=== PATIENT | female | born 1975 | race Caucasian/White ===

== ENCOUNTER 2017-07-28 09:54 | Day surgery (SDC) | payer OTHER ==
[~2017-07-28 09:54] MED LIST: Buffered Lidocaine 0.9% SYRIN* 5 ML/SYR SYRINGE INTRADERM ONE
[2017-07-28] MEDS ORDERED: Bupivacaine 0.25% SDV* 30 ML ONE (10:20)
[2017-07-28] MEDS ORDERED: Clindamycin 900 MG IVPREMIX(* 900 MG/50 ML SDV IV ONE (10:39)
[2017-07-28] MEDS ORDERED: fentaNYL* 50 MCG/ML 2 ML VIAL (100 MCG VIAL) ONE ×2 (10:52→14:35)
[2017-07-28] MEDS ORDERED: Propofol* 10 MG/ML 20 ML BTL IV PUSH ONE (10:53)
[2017-07-28] MEDS ORDERED: KETAMINE HCL* 50 MG/ML 10 ML VIAL ONE (10:53)
[2017-07-28] MEDS ORDERED: Lidocaine 2% PF * 5 ML VIAL ONE (10:53)
[2017-07-28] MEDS ORDERED: Midazolam* 1 MG/ML 5 ML VIAL (5 MG) ONE (10:53)
[2017-07-28] MEDS ORDERED: Ketorolac INJ* 30 MG/ML 1 ML VIAL ONE (10:53)
[2017-07-28] MEDS ORDERED: diPHENhydraMINE IV* 50 MG/ML 1 ml VIAL (BENADRYL) ONE (10:53)
[2017-07-28] MEDS ORDERED: Dexamethasone IV* 4 MG/ML 1 ML (4 MG) ONE (10:53)
[2017-07-28] MEDS ORDERED: Famotidine IV* 10 MG/ML 2 ML (20 mg) ONE (10:59)
[2017-07-28] MEDS ORDERED: Bupivacaine 0.5% SDV PF* 30 ML VIAL ONE (11:00)
[2017-07-28] MEDS ORDERED: DiMENhydriNATE IV* 50 MG/ML VIAL IV PUSH PRN (13:07)
[2017-07-28] MEDS ORDERED: Ondansetron INJ* 2 MG/ML VIAL IV PRN (13:07)
[2017-07-28] MEDS ORDERED: Acetaminophen TAB* 325 MG PO PRN (13:07)
[2017-07-28] MEDS ORDERED: PROCHLORPERAZINE INJ 5 MG/ML 2 ML VIAL IV PRN (13:07)
[2017-07-28] MEDS ORDERED: HYDROmorphone INJ* 1 MG/ML CARPUJECT SYRINGE IV PRN (13:07)
[2017-07-28] MEDS ORDERED: fentaNYL* 50 MCG/ML 2 ML VIAL (100 MCG VIAL) IV PRN (13:07)
[2017-07-28] MEDS ORDERED: HYDROcodone/ACETAMIN 5-325 MG* 1 TAB PO PRN (13:07)
[2017-07-28] MEDS ORDERED: DiMENhydriNATE IV* 50 MG/ML VIAL ONE (15:31)
[2017-07-28 15:44] VITALS: BP 121/72
--- NOTE | 2017-07-29 05:48 | OP ---
DATE OF OPERATION: 07/28/17 - [facility] DATE OF : 71 SURGEON: Daniel Ledesma MD TRIALS MANAGER: ANDRÉS Sánchez. An behavioral assistant was needed for the entirety of the procedure to assist with the positioning of the arm and retraction. ANESTHESIOLOGIST: Dr. Canada. ANESTHESIA: Supraclavicular block plus general. PRE-OP DIAGNOSES: 1. Left carpal tunnel syndrome. 2. Left distal radius malunion. POST-OP DIAGNOSES: 1. Left carpal tunnel syndrome. 2. Left distal radius malunion. OPERATIVE PROCEDURE: 1. Left open carpal tunnel release. 2. Repair of left distal radius malunion with opening wedge osteotomy, and volar locking plate fixation, and contralateral distal radius bone graft together with crushed cancellous allograft. INDICATIONS: Kami has had the malunion for about 13 years. More recently, she has been getting a lot of dorsal wrist pain with use of the wrist. This is coupled with significant numbness and tingling in fingers and throbbing, aching pain in the volar hand and wrist. She had seen other providers in the past who had recommended nonunion repair of the distal radius. She has finally arrived a point in her life where she felt like it was time to proceed. She had about 35 to 40 degrees of dorsal tilt, negative radial inclination, and little bit of rotational deformity. I had talked to her about the surgery, about the postoperative course, the risks and benefits. She wanted to proceed. ESTIMATED BLOOD LOSS: 15 mL. COMPLICATIONS: None. FINDINGS: As expected. IMPLANTS: Synthes variable angle distal radius plate and 2.4 mm screws DESCRIPTION OF PROCEDURE: Kami was seen in the preoperative holding area. The correct site, side, and procedure were identified. We came back to the operating room where the supraclavicular block was performed by Dr. Canada. Both arms were then prepped and draped in the usual fashion and the time-out was performed. The arm was exsanguinated with the Esmarch and the tourniquet inflated to 250 mmHg. I began by making a 2 to 3 cm incision in the standard location for an open carpal tunnel release, dissection was carried down through the subcutaneous tissue and palmar fascia to expose the transverse carpal ligament. I then released the transverse carpal ligament just off the radial aspect of the hook of the hamate and completed the release distally. I then carried out the release proximally to the level of the proximal aspect of the incision in the wrist flexion crease. I released the subcutaneous tissue and fascia and retracted that volarly and ulnarly. I then placed a Jay retractor and under direct visualization at least the remainder of the transverse carpal ligament and distal antebrachial fascia with the tenotomy scissors. The decompression was checked and there was absolutely no compression on the nerve proximally or distally. I therefore irrigated out the wound and the skin was closed with 4-0 nylon suture. I then turned my attention to the distal radius malunion and performed an extended FCR approach by making a longitudinal incision over the distal FCR tendon and taking that obliquely distally towards the scaphoid tubercle. The subcutaneous tissue was dissected down through and then the FCR tendon sheath was released. The tendon was retracted ulnarly and the subsheath was released. A blunt dissection took me down to the pronator quadratus with soft tissue overlying. The pronator quadratus was freed up and some baby Hohmann's were placed distal to the malunion. This was all very thin and nothing but a thin layer of a scar tissue adherent to the volar aspect of the radius, which eventually did become thickened up as it approached the wrist joint into the extrinsic capsular ligament. I went ahead and released the pronator quadratus off its radial margin and then darci back transversely distally. This was reflected subperiosteally and retracted ulnarly. I then went ahead and released the brachioradialis radially and released the dorsal periosteum with the elevator at the anticipated site of the osteotomy. Once all of the soft tissue was dissected free and we were ready to perform the osteotomy, I went ahead and took my Synthes variable angle distal radius plate, the longest plate available and placed this on the anticipated position on the distal fragment. This was pinned in place and the alignment of the plate was checked fluoroscopically. I then placed one 24-mm cortical screw in the second most ulnar hole. I also drilled a second hole in the hole just radial to that hole. I then removed the cortical screw and I removed the radial styloid pin. The plate was removed leaving the other distal pin in place as a guide for my osteotomy as this pin was very parallel to the joint surface. With the plate removed and the pin left in place as a guide for the osteotomy, I then came right at the apex of the angular deformity, which was just proximal to the DRUJ and made my osteotomy with the sagittal saw. I then pronated the proximal fragment of the distal radius and release the dorsal periosteum. I placed the lamina vertical boring mill operator to loosen up the soft tissues. Once I had the soft tissues distracted and relaxed, I went ahead and replaced my plate over the pin and brought that back to my distal fragment. I replaced the cortical screw, and then checked fluoroscopy to ensure good plate placement on the distal fragment. I then placed the remainder of my distal row of screws using 2.4 mm normal angle locking screws in the ulnar 3 holes and a variable angle locking screw in the radial styloid output. The cortical screw was switched out for a locking screw. The pin was removed. I then placed a lamina vertical boring mill operator and spread apart the osteotomy and put the fragments in the desired position. I then used a lobster claw to bring the proximal plate down to the bone and secured it tightly to the bone. I then checked fluoroscopically. I tweaked it just a bit until I had everything to my satisfaction. I then placed my proximal screws with cortical screws proximally and in the very last screw hole in the proximal fragment, I made that a locking screw. I liked my fluoroscopic imaging, so I went ahead and went to the contralateral wrist to obtain my bone graft. I made a 1.5 cm incision just proximal to Kendra tubercle on the right distal radius. Dissection was carried down through the subcutaneous tissue. The subperiosteal flaps were raised to expose the dorsal distal radius. I used the osteotomes to create a cortical window. I then used the angled curette to obtain a large amount of cancellous bone graft. Once I had obtained adequate bone graft, I irrigated out this wound and closed the skin with 3-0 Monocryl suture and Steri-Strips. The site was infiltrated with 0.25% Marcaine and the wound was dressed with 4x4s and sterile Webril and an LEONARDO bandage. I went back to the left wrist and I took 5 mL of crushed cancellous bone chips and crushed them up and mixed them together with my autograft. I placed this in the osteotomy site and packed it down with a tamp. Once I had adequate bone graft in place, I went ahead and took some final fluoroscopic imaging. The wound was gently irrigated. The pronator quadratus was repaired with 3-0 Vicryl suture. I was not able to repair the most distal aspect as there was a small deficit where there was not a pronator quadratus on the distal aspect of the malunion. The rest of the pronator quadratus closed up nicely. I irrigated out the wound again. The subcutaneous tissue was reapproximated with 3-0 Vicryl. The skin was closed with 4- 0 nylon suture. The wound was dressed with Xeroform, 4x4s, sterile Webril and a cock-up wrist splint was applied with volar and dorsal slabs of plaster. The tourniquet was deflated. The hand pinked up immediately. Total tourniquet time was roughly 140 minutes. The patient was then woken up and taken to the recovery room in stable condition. [id number]/CPS #: [id number] RICCO
== END 2017-07-28 16:02 | disposition home or self-care (01) ==
LOC: OREAST 09:54
PROVIDERS: ATTEND Orthopaedic Surgery Hand Surgery
DX: G56.03 Carpal tunnel syndrome, bilateral upper limbs (principal); S52.502P Unspecified fracture of the lower end of left radius, subsequent encounter for closed fracture with malunion; X58.XXXD Exposure to other specified factors, subsequent encounter; G89.18 Other acute postprocedural pain; F17.210 Nicotine dependence, cigarettes, uncomplicated; Z88.1 Allergy status to other antibiotic agents; Z88.5 Allergy status to narcotic agent; Z88.0 Allergy status to penicillin; Z88.8 Allergy status to other drugs, medicaments and biological substances; F07.81 Postconcussional syndrome; G44.309 Post-traumatic headache, unspecified, not intractable
CPT/HCPCS: 81025; C1713; C1776; J1100; J1200; J1240; J1885; J2250; J2704; J3010

== ENCOUNTER 2019-03-10 01:52 | Emergency (ER) | payer MEDICAID ==
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
[2019-03-10 04:15] LABS: Hematocrit 33 % (33-41); Hemoglobin 10.9 g/dL (12.0-16.0); Mean Corpuscular HGB Conc 33 g/dL (31-36); Mean Corpuscular Hemoglobin 31 pg (27-31); Mean Corpuscular Volume 95 fL (80-97); Mean Platelet Volume 6.5 fL (7.4-10.4); Platelet Count 291 10^3/uL (150-450); Red Cell Distribution Width 14 % (10.5-15); White Blood Count 5.9 10^3/uL (3.5-10.8)
[2019-03-10 04:32] LABS: Albumin 3.9 g/dL (3.2-5.2); Albumin/Globulin Ratio 1.5 (1-3); BUN/Creatinine Ratio 9.8 (8-20); Calcium 8.1 mg/dL (8.6-10.3); EGFR African American 127.8 (>60); EGFR Non-African American 105.6 (>60); Globulin 2.6 g/dL (2-4); Potassium 3.8 mmol/L (3.5-5.0); Total Bilirubin 0.3 mg/dL (0.2-1.0); Total Protein 6.5 g/dL (6.4-8.9)
[2019-03-10 04:49] LABS: ABS Basophils 0.1 10^3/ul (0-0.2); ABS Eosinophils 0.7 10^3/ul (0-0.6); ABS Lymphocytes 3.5 10^3/ul (1.0-4.8); ABS Monocytes 0.2 10^3/ul (0-0.8); ABS Neutrophils 1.5 10^3/ul (1.5-7.7); ABS Nucleated RBC 0 10^3/ul; Eosinophil % 11.5 %; Lymphocyte % 58.5 %; Nucleated Red Blood Cells % 0.1
[2019-03-10 05:30] VITALS: BP 101/59
== END 2019-03-10 05:25 | disposition home or self-care (01) ==
LOC: ED 01:52
DX: J44.9 Chronic obstructive pulmonary disease, unspecified (principal); J40 Bronchitis, not specified as acute or chronic; R94.31 Abnormal electrocardiogram [ECG] [EKG]; K21.9 Gastro-esophageal reflux disease without esophagitis; Z79.899 Other long term (current) drug therapy; F17.210 Nicotine dependence, cigarettes, uncomplicated; Z88.3 Allergy status to other anti-infective agents; Z88.8 Allergy status to other drugs, medicaments and biological substances; Z88.0 Allergy status to penicillin
CPT/HCPCS: 36415; 71046; 80053; 83880; 84484; 85025; 93005; 99283

== ENCOUNTER → 2019-06-07 14:00 | Emergency (ER) | payer MEDICAID ==
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
[2019-06-07 14:44] LABS: ABS Monocytes 0.2 10^3/ul (0-0.8); ABS Neutrophils 3.7 10^3/ul (1.5-7.7); Eosinophil % 0.4 %; Hematocrit 37 % (35-47); Hemoglobin 12.6 g/dL (12.0-16.0); Lymphocyte % 33.5 %; Mean Corpuscular HGB Conc 34 g/dL (31-36); Mean Corpuscular Hemoglobin 32 pg (27-31); Mean Corpuscular Volume 94 fL (80-97); Mean Platelet Volume 6.2 fL (7.4-10.4); Platelet Count 296 10^3/uL (150-450); Red Blood Count 3.98 10^6 /uL (3.70-4.87); Red Cell Distribution Width 13 % (10-15); White Blood Count 5.9 10^3/uL (3.5-10.8)
[2019-06-07 15:00] LABS: Albumin 4.1 g/dL (3.2-5.2); Albumin/Globulin Ratio 1.4 (1-3); BUN/Creatinine Ratio 8.1 (8-20); Calcium 8.2 mg/dL (8.6-10.3); EGFR African American 125.4 (>60); EGFR Non-African American 103.6 (>60); Globulin 2.9 g/dL (2-4); Total Bilirubin 0.4 mg/dL (0.2-1.0)
[2019-06-07 16:28] VITALS: BP 121/66
== END | disposition home or self-care (01) ==
LOC: ED 14:00
DX: M54.30 Sciatica, unspecified side (principal); R07.89 Other chest pain; F10.129 Alcohol abuse with intoxication, unspecified; K21.9 Gastro-esophageal reflux disease without esophagitis; F17.210 Nicotine dependence, cigarettes, uncomplicated; Z88.1 Allergy status to other antibiotic agents; Z88.0 Allergy status to penicillin; Z88.8 Allergy status to other drugs, medicaments and biological substances; Z79.899 Other long term (current) drug therapy
CPT/HCPCS: 36415; 71046; 80053; 84484; 85025; 93005; 99282

== ENCOUNTER 2019-10-18 16:15 | Emergency (ER) | payer OTHER ==
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
[2019-10-18 18:02] LABS: Hematocrit 35 % (35-47); Hemoglobin 12.3 g/dL (12.0-16.0); Mean Corpuscular HGB Conc 35 g/dL (31-36); Mean Corpuscular Hemoglobin 33 pg (27-31); Mean Corpuscular Volume 96 fL (80-97); Mean Platelet Volume 5.9 fL (7.4-10.4); Platelet Count 508 10^3/uL (150-450); Red Blood Count 3.69 10^6 /uL (3.70-4.87); Red Cell Distribution Width 14 % (10-15); White Blood Count 3.3 10^3/uL (3.5-10.8)
[2019-10-18 18:12] LABS: ALT 24 U/L (7-52); Acetaminophen < 15 mcg/mL; Albumin 3.4 g/dL (3.2-5.2); Albumin/Globulin Ratio 1.1 (1-3); Alkaline Phosphatase 88 U/L (34-104); BUN/Creatinine Ratio 7.1 (8-20); Blood Urea Nitrogen 5 mg/dL (6-24); CO2 Carbon Dioxide 27 mmol/L (22-32); Calcium 8.3 mg/dL (8.6-10.3); Chloride 106 mmol/L (101-111); Creatine Kinase 91 U/L (10-223); EGFR Non-African American 90.1 (>60); Globulin 3.1 g/dL (2-4); Glucose 87 mg/dL (70-100); Salicylate < 2.50 mg/dL (<30); Sodium 141 mmol/L (135-145); Total Protein 6.5 g/dL (6.4-8.9)
[2019-10-18 18:16] LABS: Alcohol 459 mg/dL (<10)
[2019-10-18 18:17] LABS: HCG Pregnancy < 0.60 mIU/mL
[2019-10-18 18:24] LABS: Urine Appearance Clear; Urine Bilirubin Negative (Negative); Urine Blood Negative (Negative); Urine Color Straw; Urine Glucose Negative (Negative); Urine Ketones Negative (Negative); Urine Nitrite Negative (Negative); Urine Protein Negative (Negative); Urine Specific Gravity 1.002 (1.010-1.030); Urine Urobilinogen Negative (Negative)
[2019-10-18 18:25] LABS: TSH (Thyroid Stimulating Horm) 0.47 mcIU/mL (0.34-5.60)
[2019-10-18 18:43] LABS: Urine Benzodiazepine Screen None Detected (None Detect); Urine Opiates Screen None Detected (None Detect)
[2019-10-18 19:04] LABS: AST 40 U/L (13-39); Anion Gap 8 mmol/L (2-11)
[2019-10-18 19:18] LABS: ABS Basophils 0.1 10^3/ul (0-0.2); ABS Lymphocytes 2.3 10^3/ul (1.0-4.8); ABS Monocytes 0.1 10^3/ul (0-0.8); ABS Neutrophils 0.8 10^3/ul (1.5-7.7); Nucleated Red Blood Cells % 0.1
[2019-10-18] MEDS ORDERED: Thiamine IV 100 MG, Folic Acid IV* 1 MG, Multiple Vitamin IV ADULT* 10 ML in NS 0.9% 10... IV ONE (20:02)
[2019-10-18 21:18] VITALS: BP 88/57
--- OUTSIDE RECORDS SUMMARY | 2019-10-19 08:18 | XMS REPORT | Continuity of Care Document ---
:1975 External Reference #:[id number] Author Name Siddharth Gamez NP (transmitted by agent of provider Rose Monique) Address [address] [facility], [address] [place] [id number] Care Team Providers Name Role Phone Radha Smart MD - Internal Care Team Information [employer] [phone] Medicine Problems Active Problems Provider Date Postconcussion syndrome Ameena Correa MD Onset: 12/15/2015 Other seizures Ameena Correa MD Onset: 12/15/2015 Seizure Ameena Correa MD Onset: 06/22/2016 Carpal tunnel syndrome of left wrist Ameena Correa MD Onset: 02/11/2017 Right side sciatica Ameena Correa MD Onset: 06/06/2017 Posttraumatic headache Ameena Correa MD Onset: 06/06/2017 Disorder due to and following fracture of upper Daniel Ledesma MD Onset: 11/2016 limb Social History Type Date Description Comments Sex Unknown ETOH Use Denies alcohol use Tobacco Use Start: Unknown Heavy tobacco smoker (more 1 ppd x 25 yrs than 10 cigarettes/day) Recreational Drug Use Denies Drug Use Smoking Status Reviewed: 10/10/19 Heavy tobacco smoker (more 1 ppd x 25 yrs than 10 cigarettes/day) Exercise Type/Frequency Exercises regularly Allergies, Adverse Reactions, Alerts Active Allergies Reaction Severity Comments Date Amoxicillin 12/15/2015 Penicillins 12/15/2015 Morphine 12/15/2015 Darifenacin 12/15/2015 Nitroglycerin 12/15/2015 Eggs or Egg-derived Products 12/15/2015 Strawberries 12/31/2015 Chocolate 12/31/2015 Milk-related Compounds 12/31/2015 Erythromycin 12/31/2015 Oxycodone rash Moderate 08/18/2017 Gabapentin Seizures 08/18/2017 Ibuprofen 09/19/2019 Medications Active Medications SIG Qnty Indications Ordering Date Provider Jass ac 5-10ml every 6 200ml J20.9 Siddharth Gamez NP 10/10/2019 hours as needed 100-10mg/5ML cough. Solution Prednisone take 4 tab daily x 20tabs J20.9 Siddharth Gamez NP 10/10/2019 10mg 2 days then 3 tab Tablets daily x 2 days, then 2 tab daily for 2 day, and 1 tab for 2 day. Azithromycin 2 tabs by mouth 6tabs J01.90 Siddharth Gamez NP 10/10/2019 250mg every day x1 day, Tablets 1 tab by mouth every day x 4 days Butalbital/Acetamino 1-2 capsules every 30caps Siddharth Gamez NP 10/10/2019 phen/Caffeine 12 hours as needed for headache 50-325-40mg Capsules Baclofen take 1/2-1 tab 60tabs M54.12 Siddharth Gamez NP 10/08/2019 10mg Tablets every 8 hours as needed for muscle spasm Lidocaine apply to affected 30gm M51.16 Siddharth Gamez NP 09/25/2019 4% Cream areas 3 or 4 times daily Cane use while 1units M51.16 Siddharth Gamez NP 09/19/2019 Misc ambulating Pregabalin one by mouth twice 60caps M51.16 Siddharth Gamez NP 09/19/2019 75mg daily Capsules Diclofenac Sodium apply to affected 100gm M54.31 Grecia Martin, 2018 1% area for pain DO Gel twice daily as needed Nicotrol 2 every 2 hours as 168units F17.210 Siddharth Gamez NP 06/26/2019 10mg Inhaler needed Cetirizine HCL One tablet once 30tabs Siddharth Gamez NP 05/25/2019 10mg daily Tablets Benzonatate take one or two 30caps J20.9 Siddharth Gamez NP 11/13/2018 100mg capsules every 8 Capsules hours as needed for cough. Ventolin HFA 2 puffs by mouth 8units J20.9 Siddharth Gamez NP 10/13/2018 four times a day 108(90Base) mcg/Act as needed Aerosol Wrist Brace wear at night 1units G56.02 Ameena Correa MD 02/11/2017 Ultra-Lite Carpal Tunnel/One Size Misc Omeprazole Take 1 Capsule By 30caps Siddharth Gamez NP 12/31/2015 20mg Mouth Every Day Capsules DR History Medications Tylenol Extra 2 by mouth as 90tabs Siddharth Gamez NP 10/08/2019 - Strength needed 10/10/2019 500mg Tablets Tizanidine HCL 1-2 tabs three 60tabs M54.12 Siddharth Gamez NP 09/26/2019 - 2mg times daily as 10/08/2019 Tablets needed Tizanidine HCL 1 cap by mouth 30caps M54.12 Siddharth Gamez NP 09/23/2019 - 2mg every 8 hours as 09/26/2019 Capsules needed Lidocaine apply to painful 70.88gm M51.16 Siddharth Gamez NP 09/19/2019 - 5% areas three 09/25/2019 Ointment times a day as needed Metaxalone 1-2 tabs 3 times 60tabs M54.12 Siddharth Gamez NP 09/19/2019 - 400mg daily as needed. 09/23/2019 Tablets Pain Relieving apply one to the 12units M54.31 Grecia Martin, 06/26/2019 - Lidocaine Patch hip daily as DO 07/02/2019 4% needed for pain Patches Immunizations Description No Information Available Vital Signs Date Vital Result Comment 10/10/2019 12:05pm Height 67 inches 5'7" Weight 111.38 lb Heart Rate 91 /min BP Systolic 119 mmHg BP Diastolic 79 mmHg Body Temperature 99.4 F O2 % BldC Oximetry 97 % BMI (Body Mass Index) 17.4 kg/m2 09/19/2019 11:45am Height 67 inches 5'7" Weight 111.00 lb Heart Rate 103 /min BP Systolic 116 mmHg BP Diastolic 78 mmHg Body Temperature 98.8 F O2 % BldC Oximetry 96 % BMI (Body Mass Index) 17.4 kg/m2 Results Test Acquired Date Facility Test Result H/L Range Note Xray 09/19/2019 [facility] SP Cervical 4+VWS <pending> [address] [place] [address] [phone] SP Lumbarsacral 4+ VWS <pending> Laboratory test 07/12/2019 [facility] Magnesium 1.5 mg/dL Low 1.9-2.[address] [place] [address] [phone] Creatine Kinase(CK) 221 U/L Normal 10-223 Troponin-I (TnI) 0.00 ng/mL <0.04 1 HCG 0.88 mIU/mL 2 Alcohol < 10 mg/dL Normal <10 TSH (Thyroid Stim Horm) 2.47 mcIU/mL Normal 0.34-5.60 Comp Metabolic Panel 07/12/2019 [facility] Sodium 133 mmol/L Low 135-[address] [place] [address] [phone] Potassium 4.1 mmol/L Normal 3.5-5.0 Chloride 99 mmol/L Low 101-111 Co2 Carbon Dioxide 29 mmol/L Normal 22-32 Anion Gap 5 mmol/L Normal 2-11 Glucose 92 mg/dL Normal 70-100 Blood Urea Nitrogen 5 mg/dL Low 6-24 Creatinine 0.71 mg/dL Normal 0.51-0.95 BUN/Creatinine Ratio 7.0 Low 8-20 Calcium 9.4 mg/dL Normal 8.6-10.3 Total Protein 7.1 g/dL Normal 6.4-8.9 Albumin 4.3 g/dL Normal 3.2-5.2 Globulin 2.8 g/dL Normal 2-4 Albumin/Globulin Ratio 1.5 Normal 1-3 Total Bilirubin 0.70 mg/dL Normal 0.2-1.0 Alkaline Phosphatase 85 U/L Normal 34-104 Alt 37 U/L Normal 7-52 Ast 45 U/L High 13-39 Egfr Non- 88.6 >60 Egfr 107.2 >60 3 Laboratory test 07/12/2019 [facility] Ammonia 40 mcmol/L Normal 16-[address] [place] [address] [phone] B-Type Natriuretic Peptide BNP 38 pg/mL <=100 Urine Drug 07/12/2019 [facility] Urine None Detected None Detect SCR ED & [address] A[place] [address] Screen [phone] Urine Barbiturates Screen None Detected None Detect Urine Benzodiazepine Screen None Detected None Detect Urine Cannabinoids Screen None Detected None Detect Urine Cocaine Screen None Detected None Detect Urine Opiates Screen None Detected None Detect Urine Phencyclidine Screen None Detected None Detect 4 Laboratory test 07/12/2019 [facility] Lactic Acid 1.4 mmol/L Normal 0.5-2.[address] [place] [address] [phone] CBC Auto Diff 07/12/2019 [facility] White Blood 7.9 10^3/uL Normal 3.5-10.[address] [place] [address] [phone] Red Blood Count 3.86 10^6/uL Normal 3.70-4.87 Hemoglobin 12.5 g/dL Normal 12.0-16.0 Hematocrit 36 % Normal 35-47 Mean Corpuscular Volume 94 fL Normal 80-97 Mean Corpuscular Hemoglobin 32 pg High 27-31 Mean Corpuscular HGB Conc 34 g/dL Normal 31-36 Red Cell Distribution Width 14 % Normal 10-15 Platelet Count 222 10^3/uL Normal 150-450 Mean Platelet Volume 7.4 fL Normal 7.4-10.4 Abs Neutrophils 5.7 10^3/uL Normal 1.5-7.7 Abs Lymphocytes 2.0 10^3/uL Normal 1.0-4.8 Abs Monocytes 0.2 10^3/uL Normal 0-0.8 Abs Eosinophils 0.0 10^3/uL Normal 0-0.6 Abs Basophils 0.1 10^3/uL Normal 0-0.2 Abs Nucleated RBC 0.0 10^3/uL Granulocyte % 71.1 % Lymphocyte % 24.9 % Monocyte % 2.9 % Eosinophil % 0.4 % Basophil % 0.7 % Nucleated Red Blood Cells % 0.0 Urinalysis Profile 07/12/2019 [facility] Urine Color Yellow [address] [place] [address] [phone] Urine Appearance Cloudy Urine Specific [place] 1.006 Low 1.010-1.030 Urine pH 5.0 Normal 5-9 Urine Urobilinogen Negative Negative Urine Ketones Negative Negative Urine Protein Negative Negative Urine Leukocytes Negative Negative Urine Blood Negative Negative Urine Nitrite Negative Negative Urine Bilirubin Negative Negative Urine Glucose Negative Negative Laboratory 06/26/2019 [facility] TSH (Thyroid 1.95 Normal 0.34 -5.[address] Stim Horm) mcIU/[place] [address] [phone] Hemoglobin A1c (Glyco HGB) 5.1 % Normal 4.0-5.6 6 HIV 1&2 p24 06/26/2019 [facility] HIV 4th Negative Negative Screen [address] [place] [address] [phone] Hepatitis C 06/26/2019 [facility] HCV Index 0.02 s/c Antibody [address] [place] [address] [phone] Hepatitis C Antibody Negative Negative Basic Metabolic 06/26/2019 [facility] Sodium 135 mmol/L Normal 135-145 Panel [address] [place] [address] [phone] Potassium 3.7 mmol/L Normal 3.5-5.0 Chloride 99 mmol/L Low 101-111 Co2 Carbon Dioxide 26 mmol/L Normal 22-32 Anion Gap 10 mmol/L Normal 2-11 Glucose 84 mg/dL Normal 70-100 Blood Urea Nitrogen 7 mg/dL Normal 6-24 Creatinine 0.81 mg/dL Normal 0.51-0.95 BUN/Creatinine Ratio 8.6 Normal 8-20 Calcium 9.2 mg/dL Normal 8.6-10.3 Egfr Non- 76.1 >60 Egfr 92.1 >60 7 CBC Auto 06/26/2019 [facility] White Blood 4.1 10^3/uL Normal 3.5-10.[address] [place] [address] [phone] Red Blood Count 3.90 10^6/uL Normal 3.70-4.87 Hemoglobin 12.4 g/dL Normal 12.0-16.0 Hematocrit 36 % Normal 35-47 Mean Corpuscular Volume 93 fL Normal 80-97 Mean Corpuscular Hemoglobin 32 pg High 27-31 Mean Corpuscular HGB Conc 34 g/dL Normal 31-36 Red Cell Distribution Width 14 % Normal 10-15 Platelet Count 244 10^3/uL Normal 150-450 Mean Platelet Volume 7.0 fL Low 7.4-10.4 Abs Neutrophils 2.2 10^3/uL Normal 1.5-7.7 Abs Lymphocytes 1.5 10^3/uL Normal 1.0-4.8 Abs Monocytes 0.3 10^3/uL Normal 0-0.8 Abs Eosinophils 0.0 10^3/uL Normal 0-0.6 Abs Basophils 0.1 10^3/uL Normal 0-0.2 Abs Nucleated RBC 0.0 10^3/uL Granulocyte % 53.2 % Lymphocyte % 36.0 % Monocyte % 8.3 % Eosinophil % 1.2 % Basophil % 1.3 % Nucleated Red Blood Cells % 0.1 Lipid Profile 06/26/2019 [facility] Triglycerides 88 mg/dL 8 (Trig/Chol/HDL) [address] [place] [address] [phone] Cholesterol 198 mg/dL 9 HDL Cholesterol 74.5 mg/dL 10 LDL Cholesterol 106 mg/dL 11 CBC Auto 06/07/2019 [facility] White Blood 5.9 10^3/uL Normal 3.5-10.[address] [place] [address] [phone] Red Blood Count 3.98 10^6/uL Normal 3.70-4.87 Hemoglobin 12.6 g/dL Normal 12.0-16.0 Hematocrit 37 % Normal 35-47 Mean Corpuscular Volume 94 fL Normal 80-97 Mean Corpuscular Hemoglobin 32 pg High 27-31 Mean Corpuscular HGB Conc 34 g/dL Normal 31-36 Red Cell Distribution Width 13 % Normal 10-15 Platelet Count 296 10^3/uL Normal 150-450 Mean Platelet Volume 6.2 fL Low 7.4-10.4 Abs Neutrophils 3.7 10^3/uL Normal 1.5-7.7 Abs Lymphocytes 2.0 10^3/uL Normal 1.0-4.8 Abs Monocytes 0.2 10^3/uL Normal 0-0.8 Abs Eosinophils 0.0 10^3/uL Normal 0-0.6 Abs Basophils 0.0 10^3/uL Normal 0-0.2 Abs Nucleated RBC 0.0 10^3/uL Granulocyte % 62.3 % Lymphocyte % 33.5 % Monocyte % 3.5 % Eosinophil % 0.4 % Basophil % 0.3 % Nucleated Red Blood Cells % 0.0 Laboratory test 06/07/2019 [facility] Troponin-I 0.00 ng/mL < 0.[address] (TnI) [place] [address] [phone] Comp Metabolic 06/07/2019 [facility] Sodium 133 mmol/L Low 135 -[address] [place], [place] [id number] [phone] Potassium 4.0 mmol/L Normal 3.5-5.0 Chloride 100 mmol/L Low 101-111 Co2 Carbon Dioxide 22 mmol/L Normal 22-32 Anion Gap 11 mmol/L Normal 2-11 Glucose 82 mg/dL Normal 70-100 Blood Urea Nitrogen 5 mg/dL Low 6-24 Creatinine 0.62 mg/dL Normal 0.51-0.95 BUN/Creatinine Ratio 8.1 Normal 8-20 Calcium 8.2 mg/dL Low 8.6-10.3 Total Protein 7.0 g/dL Normal 6.4-8.9 Albumin 4.1 g/dL Normal 3.2-5.2 Globulin 2.9 g/dL Normal 2-4 Albumin/Globulin Ratio 1.4 Normal 1-3 Total Bilirubin 0.40 mg/dL Normal 0.2-1.0 Alkaline Phosphatase 100 U/L Normal 34-104 Alt 30 U/L Normal 7-52 Ast 51 U/L High 13-39 Egfr Non- 103.6 >60 Egfr 125.4 >60 13 1 Troponin-I testing on Plasma Separator Tubes (PST) has a known false positive rate of 0.20-0.40%. All positive troponins reflex immediately to secondary confirmatory testing. Using the [employer] DxI 800 Access Immunoassay systems, the 99th percentile upper reference limit was demonstrated to be < 0.03 ng/mL. 2 <5.0 Negative 5.0 - 25.0 Indeterminate (Repeat testing recommended after 72 hours) >25.0 Positive Perimenopausal women can display HCG levels of up to 20 mIU/mL 3 Because ethnic data is not always readily available, this report includes an eGFR for both -Americans and non- Americans. The National Kidney Disease Education Program (NKDEP) does not endorse the use of the MDRD equation for patients that are not between the ages of 18 and 70, are , have extremes of body size, muscle mass, or nutritional status, or are non- or non-. According to the National Kidney Foundation, irrespective of diagnosis, the stage of the disease is based on the level of kidney function: Stage Description GFR(mL/min/1.73 m(2)) 1 Kidney damage with normal or decreased GFR 90 2 Kidney damage with mild decrease in GFR 60-89 3 Moderate decrease in GFR 30-59 4 Severe decrease in GFR 15-29 5 Kidney failure <15 (or dialysis) 4 The urine specimen was tested at the listed cutoffs: Drug class test level (ng/mL) Amphetamines 500 Barbiturates 200 Benzodiazepine metabolites 200 Cocaine metabolites 150 Cannabinoids 50 Opiates 300 Pcp 25 Specimen was received without chain of custody. Results should be used for medical purposes only. 5 [facility] Severe Sepsis and Septic Shock Management Bundle Measure requires all lactic acids initially measuring >2.0 mmol/L be repeated. 6 Therapeutic target for the treatment of diabetes mellitus patients is <7% HBA1C, and in selective patients <6.0%. Please refer to [place] [employer] diabetic care guidelines for further information. 7 Because ethnic data is not always readily available, this report includes an eGFR for both -Americans and non- Americans. The National Kidney Disease Education Program (NKDEP) does not endorse the use of the MDRD equation for patients that are not between the ages of 18 and 70, are , have extremes of body size, muscle mass, or nutritional status, or are non- or non-. According to the National Kidney Foundation, irrespective of diagnosis, the stage of the disease is based on the level of kidney function: Stage Description GFR(mL/min/1.73 m(2)) 1 Kidney damage with normal or decreased GFR 90 2 Kidney damage with mild decrease in GFR 60-89 3 Moderate decrease in GFR 30-59 4 Severe decrease in GFR 15-29 5 Kidney failure <15 (or dialysis) 8 Desirable: <150 Borderline High: 150-199 High: 200-499 Very High: >500 9 Desirable: <200 Borderline High: 200-239 High: >239 10 Low: <40 Desirable: 40-60 High: >60 11 Desirable: <100 Near Optimal: 100-129 Borderline High: 130-159 High: 160-189 Very High: >189 12 Troponin-I testing on Plasma Separator Tubes (PST) has a known false positive rate of 0.20-0.40%. All positive troponins reflex immediately to secondary confirmatory testing. Using the [employer] Access Immunoassay systems, the 99th percentile upper reference limit was demonstrated to be < 0.03 ng/mL. 13 Because ethnic data is not always readily available, this report includes an eGFR for both -Americans and non- Americans. The National Kidney Disease Education Program (NKDEP) does not endorse the use of the MDRD equation for patients that are not between the ages of 18 and 70, are , have extremes of body size, muscle mass, or nutritional status, or are non- or non-. According to the National Kidney Foundation, irrespective of diagnosis, the stage of the disease is based on the level of kidney function: Stage Description GFR(mL/min/1.73 m(2)) 1 Kidney damage with normal or decreased GFR 90 2 Kidney damage with mild decrease in GFR 60-89 3 Moderate decrease in GFR 30-59 4 Severe decrease in GFR 15-29 5 Kidney failure <15 (or dialysis) Procedures Description No Information Available Medical Devices Description No Information Available Encounters Type Date Location Provider Dx Diagnosis Office Visit 09/19/2019 [facility] Internal Siddharth Gamez NP M51.16 Intervertebral disc 11:40a Medicine - Ccmob disorders w radiculopathy, lumbar region M79.601 Pain in right arm R20.0 Anesthesia of skin G43.009 Migraine w/o aura, not intractable, w/o status migrainosus Office Visit 06/26/2019 8:00a [facility] Internal Grecia Martin, R63.4 Abnormal weight Medicine - Suite DO loss R N95.1 Menopausal and female climacteric states M54.31 Sciatica, right side G43.009 Migraine w/o aura, not intractable, w/o status migrainosus F17.210 Nicotine dependence, cigarettes, uncomplicated Assessments Date Code Description Provider 10/10/2019 J01.90 Acute sinusitis, unspecified Siddharth Vera [facility] 10/10/2019 J20.9 Acute bronchitis, unspecified Siddharth Vera [facility] 10/10/2019 R51 Headache Siddharth Vera, [facility] 09/19/2019 M51.16 Intervertebral disc disorders with Siddharthned Gamez [facility] radiculopathy, lumbar region 09/19/2019 M79.601 Pain in right arm Siddharthned Gamez [facility] 09/19/2019 R20.0 Anesthesia of skin Siddharth Gamez NP 09/19/2019 G43.009 Migraine without aura, not intractable, without Siddharth Gamez NP status migrainosus 06/26/2019 R63.4 Abnormal weight loss Grecia Martin, DO 06/26/2019 N95.1 Menopausal and female climacteric states Grecia Martin, DO 06/26/2019 M54.31 Sciatica, right side Grecia Martin, DO 06/26/2019 G43.009 Migraine without aura, not intractable, without Grecia Martin, DO status migrainosus 06/26/2019 F17.210 Nicotine dependence, cigarettes, uncomplicated Grecia Martin, DO Plan of Treatment 10/10/2019 - Siddharth Gamez NPJ01.90 Acute sinusitis, unspecifiedNew Medication: Azithromycin 250 mg - 2 tabs by mouth every day x1 day, 1 tab by mouth every day x 4 daysComments:Complete the entire course of antibiotics, even if feeling better.J20.9 Acute bronchitis, unspecifiedNew Medication:Cheratussin ac 100-10 mg/5ML - 5-10ml every 6 hours as needed cough.Prednisone 10 mg - take 4 tab daily x 2 days then 3 tab daily x 2 days, then 2 tab daily for 2 day, and 1 tab for 2 day.Comments:I have sent in a refill for the rescue inhaler and the cough medication.R51 Headache Functional Status Description No Information Available Mental Status Description No Information Available Referrals Refer to Reason for Referral Status Appt Date Madonna Roach MD Sent 09/26/2019 8 [facility], [place] [address] [phone] Zurdo Obregon MD Rescheduled pt appt w/ Mj Churchill NP at [facility] [place] [facility] Sent [address] [place] [address] [place] [address] [phone] [facility] [place] Sent [address] [place], [place] [id number] [phone]
--- OUTSIDE RECORDS SUMMARY | 2019-10-19 08:18 | XMS REPORT | Continuity of Care Document ---
:1975 External Reference #:[id number] Author Name Siddharth Gamez NP (transmitted by agent of provider Mirna Vincent) Address [address] [facility], [address] [place] [id number] Care Team Providers Name Role Phone Radha Smart MD - Internal Care Team Information [employer] Medicine Problems Active Problems Provider Date Postconcussion [...] Use Denies Drug Use Smoking Status Reviewed: 06/26/19 Heavy tobacco smoker (more 1 ppd x [...] Medications SIG Qnty Indications Ordering Date Provider Lidocaine apply to painful 70.88gm M51.16 Siddharth Gamez NP 09/19/2019 5% areas three times Ointment a day as needed Metaxalone 1-2 tabs 3 times 60tabs M54.12 Siddharth Gamez NP 09/19/2019 400mg daily as needed. Tablets Cane use while 1units M51.16 Siddharth Gamez NP 09/19/2019 Misc ambulating Pregabalin one by mouth twice 60caps M51.16 Siddharth Gamez NP 09/19/2019 75mg daily Capsules Diclofenac Sodium apply to affected 100gm M54.31 Grecia Martin, 2018 area for pain DO 1% Gel twice daily as needed Nicotrol 2 every 2 hours as 168units F17.210 Siddharth Gamez NP 06/26/2019 10mg needed Inhaler Cetirizine HCL One tablet once 30tabs Siddharth [...] 12/31/2015 20mg Mouth Every Day Capsules DR Tylenol Extra 2 by mouth as Unknown Strength needed 500mg Tablets History Medications Pain Relieving apply one to the 12units M54.31 Grecia Martin, 06/26/2019 - Lidocaine Patch hip daily as DO 07/02/2019 4% needed for pain Patches Immunizations Description No Information Available Vital Signs Date Vital Result Comment 09/19/2019 11:45am Height 67 inches 5'7" Weight 111.00 lb Heart Rate 103 /min BP Systolic 116 mmHg BP Diastolic 78 mmHg Body Temperature 98.8 F O2 % BldC Oximetry 96 % BMI (Body Mass Index) 17.4 kg/m2 06/26/2019 8:46am Height 67 inches 5'7" Weight 104.00 lb Heart Rate 100 /min BP Systolic Sitting 126 mmHg BP Diastolic Sitting 86 mmHg Respiratory Rate 16 /min Body Temperature 97.7 F O2 % BldC Oximetry 98 % BMI (Body Mass Index) 16.3 kg/m2 Results Test Acquired Date Facility Test Result H/L Range Note Xray 09/19/2019 [facility] SP Cervical 4+VWS <pending> [address] [place] [address] [phone] SP Lumbarsacral 4+ VWS <pending> Laboratory test 07/12/2019 [facility] Magnesium 1.5 mg/dL Low 1.9-2.7 finding [address] [place] [address] [phone] Creatine Kinase(CK) 221 U/L Normal 10-223 Troponin-I (TnI) 0.00 ng/mL <0.04 1 HCG 0.88 mIU/mL 2 Alcohol < 10 mg/dL Normal <10 TSH (Thyroid Stim Horm) 2.47 mcIU/mL Normal 0.34-5.60 Comp Metabolic Panel 07/12/2019 [facility] Sodium 133 mmol/L Low 135-145 [address] [place] [address] [phone] Potassium 4.1 mmol/L Normal 3.5-5.0 Chloride 99 [...] Egfr 107.2 >60 3 Laboratory test 07/12/2019 [facility] Ammonia 40 mcmol/L Normal 16-53 finding [address] [place] [address] [phone] B-Type Natriuretic Peptide BNP 38 pg/mL <=100 Urine Drug 07/12/2019 [facility] Urine None Detected None Detect SCR ED & [address] [facility] [place] [address] Screen [phone] Urine Barbiturates Screen None Detected None Detect Urine Benzodiazepine Screen None Detected None Detect Urine Cannabinoids Screen None Detected None Detect Urine Cocaine Screen None Detected None Detect Urine Opiates Screen None Detected None Detect Urine Phencyclidine Screen None Detected None Detect 4 Laboratory test 07/12/2019 [facility] Lactic Acid 1.4 mmol/L Normal 0.5-2.0 5 finding [address] [place], [place] [id number] [phone] CBC Auto Diff 07/12/2019 [facility] White Blood 7.9 10^3/uL Normal 3.5-10.[address] [place] [address] [phone] Red Blood Count 3.86 10^6/uL Normal 3.70-4.87 [...] Blood Cells % 0.0 Urinalysis Profile 07/12/2019 [facility] Urine Color Yellow [address] [place] [address] [phone] Urine Appearance Cloudy Urine Specific [place] 1.006 Low 1.010-1.030 Urine pH 5.0 Normal 5-9 Urine Urobilinogen Negative Negative Urine Ketones Negative Negative Urine Protein Negative Negative Urine Leukocytes Negative Negative Urine Blood Negative Negative Urine Nitrite Negative Negative Urine Bilirubin Negative Negative Urine Glucose Negative Negative Laboratory 06/26/2019 [facility] TSH (Thyroid 1.95 Normal 0.34 -5.60 test finding [address] [facility] Stim Horm) mcIU/[place] [address] [phone] Hemoglobin A1c (Glyco HGB) 5.1 % Normal 4.0-5.6 6 HIV 1&2 p24 06/26/2019 [facility] HIV 4th Negative Negative Screen [address] [place] [address] [place] [address] [phone] Hepatitis C 06/26/2019 [facility] HCV Index 0.02 s/c Antibody [address] [place] [address] [phone] Hepatitis C Antibody Negative Negative Basic Metabolic 06/26/2019 [facility] Sodium 135 mmol/L Normal 135-[address] [place] [address] [phone] Potassium 3.7 mmol/L Normal 3.5-5.0 Chloride 99 mmol/L Low 101-111 Co2 Carbon Dioxide 26 mmol/L Normal 22-32 Anion Gap 10 mmol/L Normal 2-11 Glucose 84 mg/dL Normal 70-100 Blood Urea Nitrogen 7 mg/dL Normal 6-24 Creatinine 0.81 mg/dL Normal 0.51-0.95 BUN/Creatinine Ratio 8.6 Normal 8-20 Calcium 9.2 mg/dL Normal 8.6-10.3 Egfr Non- 76.1 >60 Egfr 92.1 >60 7 CBC Auto 06/26/2019 [facility] White Blood 4.1 10^3/uL Normal 3.5-10.8 Diff [address] [facility] [place] [address] [phone] Red Blood Count 3.90 10^6/uL Normal 3.70-4.87 [...] Blood Cells % 0.1 Lipid Profile 06/26/2019 [facility] Triglycerides 88 mg/dL 8 (Trig/Chol/HDL) [address] [place] [address] [phone] Cholesterol 198 mg/dL 9 HDL Cholesterol 74.5 mg/dL 10 LDL Cholesterol 106 mg/dL 11 CBC Auto 06/07/2019 [facility] White Blood 5.9 10^3/uL Normal 3.5-10.[address] [place] [address] [phone] Red Blood Count 3.98 10^6/uL Normal 3.70-4.87 [...] Blood Cells % 0.0 Laboratory test 06/07/2019 [facility] Troponin-I 0.00 ng/mL < 0.04 [address] (TnI) [place] [address] [phone] Comp Metabolic 06/07/2019 [facility] Sodium 133 mmol/L Low 135 -[address] [place] [address] [phone] Potassium 4.0 mmol/L Normal 3.5-5.0 Chloride 100 [...] immediately to secondary confirmatory testing. Using the [employer] 800 Access Immunoassay systems, the 99th percentile [...] be used for medical purposes only. 5 [facility] Severe Sepsis and Septic Shock Management Bundle Measure requires all lactic acids initially measuring >2.0 mmol/L be repeated. 6 Therapeutic target for the treatment of diabetes mellitus patients is <7% HBA1C, and in selective patients <6.0%. Please refer to [place] [employer] diabetic care guidelines for further [...] immediately to secondary confirmatory testing. Using the [employer] 800 Access Immunoassay systems, the 99th percentile [...] Date Location Provider Dx Diagnosis Office Visit 06/26/2019 [facility] [employer] [facility] Internal Grecia Martin, R63.4 Abnormal weight 8:00a Medicine - Suite DO loss R N95.1 Menopausal and female climacteric states M54.31 Sciatica, right side G43.009 Migraine w/o aura, not intractable, w/o status migrainosus F17.210 Nicotine dependence, cigarettes, uncomplicated Assessments Date Code Description Provider 09/19/2019 M51.16 Intervertebral disc disorders with Siddharth Gamez NP radiculopathy, lumbar region 09/19/2019 M54.12 Radiculopathy, cervical region Siddharth Gamez NP 09/19/2019 G43.009 Migraine without aura, not intractable, without Siddharth Gamez NP status migrainosus 06/26/2019 R63.4 Abnormal weight loss Grecia Martin, DO 06/26/2019 N95.1 Menopausal and female climacteric states Grecia Martin, DO 06/26/2019 M54.31 Sciatica, right side Grecia Martin, DO 06/26/2019 G43.009 Migraine without aura, not intractable, without Grecia Martin, DO status migrainosus 06/26/2019 F17.210 Nicotine dependence, cigarettes, uncomplicated Grecia Veronica, DO Plan of Treatment Future Appointment(s):09/21/2019 2:30 pm - Mj Churchill NP at [facility]209/19/2019 - Siddharth Gamez NPM51.16 Intervertebral disc disorders with radiculopathy, lumbar regionNew Medication:Lidocaine 5 % - apply to painful areas three times a day as neededCane - use while ambulatingPregabalin 75 mg - one by mouth twice dailyNew Therapy:Physical TherapyComments:I have ordered the xray and physical therapy.Referral:Madonna Roach MD, Surgery, UbzzwgmrzbgkO57.12 Radiculopathy, cervical regionNew Medication:Metaxalone 400 mg - 1-2 tabs 3 times daily as needed.New Therapy:Physical KizlmlcI38.009 Migraine without aura, not intractable, without status migrainosusFollow up:PT. referred to Dr. Obregon in June, please help with setting up appt. Functional Status Description No Information Available Mental Status Description No Information Available Referrals Refer to Reason for Referral Status Appt Date Madonna Roach MD Sent [address] [facility], [place] [address] [phone] Zurdo Obregon MD Rescheduled pt appt w/ Mj Churchill NP at [facility] Sent 2018 [address] [facility] [place] [address] [place] [address] [phone] [facility] [place] Sent [address] [place] [address] [phone]
== END 2019-10-18 21:20 | disposition home or self-care (01) ==
LOC: ED 16:15
DX: F10.929 Alcohol use, unspecified with intoxication, unspecified (principal); D70.9 Neutropenia, unspecified; K21.9 Gastro-esophageal reflux disease without esophagitis; F17.210 Nicotine dependence, cigarettes, uncomplicated; Z79.899 Other long term (current) drug therapy; Z88.1 Allergy status to other antibiotic agents; Z88.0 Allergy status to penicillin; Z88.8 Allergy status to other drugs, medicaments and biological substances
CPT/HCPCS: 36415; 71045; 80053; 80307; 80320; 80329; 81003; 82550; 83605; 84443; 84702; 85025; 85060; 93005; 99282; G0480; J3411

== ENCOUNTER 2020-01-08 19:38 | Emergency (ER) | payer SELFPAY ==
--- NOTE | 2020-01-09 00:10 | ED ---
Respiratory - HPI Summary HPI Summary: Patient complains of fevers at 104, chills, headache, productive cough, sore throat, SOB, CP, back pain, nausea, decreased by mouth intake 5 days with 2 episodes of diarrhea. Denies abdominal pain, urine symptoms, vaginal symptoms, neck stiffness, vomiting. Medical history is EtOH, sciatica, GERD. Positive smoker. - History of Current Complaint Chief Complaint: EDGeneral Stated Complaint: FEVER Time Seen by Provider: 01/09/20 00:02 Hx Obtained From: Patient Onset/Duration: Gradual Onset, Lasting Days Timing: Constant Initial Severity: Severe Current Severity: Severe Pain Intensity: 10 Character: Cough (Productive) Sputum Amount: Moderate Sputum Color: Green Aggravating Factor(s): Nothing Alleviating Factor(s): Nothing Associated Signs and Symptoms: SOB, Chest Pain, Sinus Infection, Chest Pain with Cough, Chills, Nasal Congestion - Allergy/Home Medications Allergies/Adverse Reactions: Allergies Allergy/AdvReac Type Severity Reaction Status Date / Time amoxicillin Allergy Unknown Verified 03/10/19 03:59 Reaction Details chocolate flavor Allergy Unknown Verified 01/09/20 00:37 Reaction Details egg Allergy Unknown Verified 01/09/20 00:37 Reaction Details erythromycin base Allergy Unknown Verified 03/10/19 03:59 Reaction Details milk Allergy Unknown Verified 01/09/20 00:37 Reaction Details morphine Allergy Unknown Verified 01/08/20 19:43 Reaction Details nitroglycerin Allergy Shortness Verified 03/10/19 03:59 of Breath Penicillins Allergy Unknown Verified 03/10/19 03:59 Reaction Details strawberry Allergy Unknown Verified 01/09/20 00:37 Reaction Details NITROG Allergy See Comment Uncoded 07/28/17 10:22 Home Medications: Home Medications Albuterol HFA INHALER* [Ventolin HFA Inhaler*] 2 puff INH Q6H PRN #1 mdi [Rx Confirmed 01/09/20] Cetirizine* [ZyrTEC 10 MG TAB*] 10 mg PO DAILY 06/07/19 [History Confirmed 01/09] Omeprazole CAP (NF) [Prilosec CAP* 20 MG] 20 mg PO DAILY 06/07/19 [History Confirmed 01/09/20] Nicotine Inhaler* (NF) [Nicotine Inhaler*] 20 mg INH Q2H PRN 07/12/19 [History Confirmed 01/09/20] Baclofen 10 mg PO DAILY 01/09/20 [History Confirmed 01/09/20] Benzonatate CAP* [Tessalon 100 MG CAP*] 200 mg PO TID 6 Days #40 cap 01/09/20 [ Rx] Levofloxacin TAB* [Levaquin TAB*] 750 mg PO DAILY #7 tab 01/09/20 [Rx] Ondansetron ODT TAB* [Zofran 4 MG Odt TAB*] 4 mg PO Q8H PRN 4 Days #14 tab.odt 01/09/20 [Rx] clindamycin HCL [Clindamycin HCl] 450 mg PO TID 7 Days #63 capsule 01/09/20 [Rx] guaiFENesin/CODIENE 100mg/10mg [Robitussin AC 100Mg/10Mg in 5 ml] 10 ml PO Q4H PRN 2 Days #50 udc MDD 20ml 01/09/20 [Rx] PMH/Surg Hx/FS Hx/Imm Hx Endocrine/Hematology History: Denies: Hx Diabetes Cardiovascular History: Denies: Hx Angina, Hx Atrial Fibrillation, Hx Coronary Artery Disease, Hx Hypertension, Hx Pacemaker/ICD Respiratory History: Denies: Hx Asthma GI History: Reports: Hx Gastroesophageal Reflux Disease - ON DAILY MEDS History: Denies: Hx Renal Disease Sensory History: Reports: Hx Contacts or Glasses - GLASSES Denies: Hx Hearing Aid Opthamlomology History: Reports: Hx Contacts or Glasses - GLASSES EENT History: Denies: Hx Deafness Neurological History: Reports: Hx Headaches - HIT IN HEAD 08/2015, WAS SEEING NEUROLOGIST, CLEARED,, Hx Seizures - 2 SEIZIRES 11/2015 STATES FROM MEDICATION, NONE SINCE Psychiatric History: Denies: Hx Panic Disorder - Surgical History Surgery Procedure, Year, and Place: YOUNG CHILD tubes in ears [place]. YOUNG CHILD tonsils. [address] [facility]. 1995 - 2003 [facility] Hx Anesthesia Reactions: No Infectious Disease History: No Infectious Disease History: Denies: History Other Infectious Disease, Traveled Outside the [place] in Last 30 Days - Family History Known Family History: Positive: Cardiac Disease - Social History Alcohol Use: Weekly Hx Substance Use: Yes Substance Use Type: Reports: None Hx Tobacco Use: Yes Smoking Status (MU): Heavy Every Day Tobacco Smoker Type: Cigarettes Amount Used/How Often: 1 PPD 25 YRS Have You Smoked in the Last Year: Yes Review of Systems Positive: Fever, Chills Eyes: Negative Positive: Sore Throat, Nasal Discharge Positive: Chest Pain Positive: Shortness Of Breath, Cough Positive: Diarrhea, Nausea Genitourinary: Negative Positive: Myalgia Skin: Negative Positive: Headache Psychological: Normal All Other Systems Reviewed And Are Negative: Yes Physical Exam Triage Information Reviewed: Yes Vital Signs On Initial Exam: Initial Vitals Temp Pulse Resp BP Pulse Ox 97.6 F 96 16 106/77 100 01/08/20 19:40 01/08/20 19:40 01/08/20 19:40 01/08/20 19:40 01/08/20 19:40 Vital Signs Reviewed: Yes Appearance: Positive: Well-Appearing Skin: Positive: Warm Head/Face: Positive: Normal Head/Face Inspection Eyes: Positive: Normal ENT: Positive: Pharyngeal erythema, TMs normal, Uvula midline. Negative: Tonsillar swelling, Tonsillar exudate, Trismus, Muffled voice, Hoarse voice Neck: Positive: Supple Respiratory/Lung Sounds: Positive: Clear to Auscultation Cardiovascular: Positive: Normal Abdomen Description: Positive: Nontender Musculoskeletal: Positive: Normal Neurological: Positive: Normal Psychiatric: Positive: Normal AVPU Assessment: Alert - Jimy Coma Scale Best Eye Response: 4 - Spontaneous Best Motor Response: 6 - Obeys Commands Best Verbal Response: 5 - Oriented Coma Scale Total: 15 Procedures - Sedation Patient Received Moderate/Deep Sedation with Procedure: No Diagnostics - Vital Signs Vital Signs Temp Pulse Resp BP Pulse Ox 01/08/20 23:56 98.6 F 86 18 106/60 96 01/08/20 21:59 98.3 F 57 16 95/64 97 01/08/20 19:40 97.6 F 96 16 106/77 100 - Laboratory Result Diagrams: 01/09/20 00:38 01/09/20 00:38 Lab Statement: Any lab studies that have been ordered have been reviewed, and results considered in the medical decision making process. Disposition - Course Course Of Treatment: Patient complains of fevers at 104, chills, headache, productive cough, sore throat, SOB, CP, back pain, nausea, decreased by mouth intake 5 days with 2 episodes of diarrhea. Denies abdominal pain, urine symptoms, vaginal symptoms, neck stiffness, vomiting. Medical history is EtOH, sciatica, GERD. Positive smoker. Vital signs within normal limits. CRP 268. Potassium 3.2. Labs otherwise unremarkable. Strep negative. Chest x-ray normal. CTA chest positive for pneumonitis. Initial EKG contained a lot of artifact read by machine as a flutter. Second EKG sinus rhythm, heart rate of 82, normal P axis. Due to allergies to penicillins and macrolides patient was prescribed clindamycin. Patient states insurance will not cover clindamycin. Therefore compelled to use fluoroquinolone. Levaquin prescribed. - Diagnoses Provider Diagnoses: Pneumonitis, Hypokalemia, Fever, Cough Discharge ED - Sign-Out/Discharge Documenting (check all that apply): Patient Departure - Discharge Plan Condition: Stable Disposition: HOME Prescriptions: Benzonatate CAP* [Tessalon 100 MG CAP*] 200 mg PO TID 6 Days #40 cap clindamycin HCL [Clindamycin HCl] 450 mg PO TID 7 Days #63 capsule guaiFENesin/CODIENE 100mg/10mg [Robitussin AC 100Mg/10Mg in 5 ml] 10 ml PO Q4H PRN 2 Days #50 udc MDD 20ml PRN Reason: Cough Levofloxacin TAB* [Levaquin TAB*] 750 mg PO DAILY #7 tab Ondansetron ODT TAB* [Zofran 4 MG Odt TAB*] 4 mg PO Q8H PRN 4 Days #14 tab.odt PRN Reason: Nausea Patient Education Materials: Pneumonitis (ED) Print Language: BENGALI Referrals: Siddharth Gamez, ACCOUNTS PAYABLE ANALYST [Primary Care Provider] - Additional Instructions: Take clindamycin as directed for lung infection. Alternate ibuprofen 600 mg with Tylenol 650 mg every 3 hours for headache and fever control. Take Zofran as directed for nausea if needed. Take Tessalon as directed for cough if needed. Drink plenty of fluids to maintain hydration. Return to the ED for any new or worsening symptoms. - Billing Disposition and Condition Condition: STABLE Disposition: Home
[2020-01-09 00:43] LABS: ABS Basophils 0.1 10^3/ul (0-0.2); ABS Lymphocytes 2.2 10^3/ul (1.0-4.8); ABS Monocytes 0.7 10^3/ul (0-0.8); ABS Neutrophils 6.8 10^3/ul (1.5-7.7); Hematocrit 35 % (35-47); Hemoglobin 12.1 g/dL (12.0-16.0); Lymphocyte % 22.9 %; Mean Corpuscular HGB Conc 34 g/dL (31-36); Mean Corpuscular Hemoglobin 32 pg (27-31); Mean Corpuscular Volume 94 fL (80-97); Mean Platelet Volume 7.1 fL (7.4-10.4); Platelet Count 197 10^3/uL (150-450); Red Blood Count 3.77 10^6 /uL (3.70-4.87); Red Cell Distribution Width 14 % (10-15); White Blood Count 9.8 10^3/uL (3.5-10.8)
[2020-01-09 01:01] LABS: Albumin 3.5 g/dL (3.2-5.2); BUN/Creatinine Ratio 11.8 (8-20); C Reactive Protein 268.44 mg/L (<8.01); Calcium 8.5 mg/dL (8.6-10.3); EGFR African American 99.1 (>60); EGFR Non-African American 81.9 (>60); Globulin 3.4 g/dL (2-4); Potassium 3.2 mmol/L (3.5-5.0); Total Bilirubin 0.4 mg/dL (0.2-1.0); Total Protein 6.9 g/dL (6.4-8.9)
[2020-01-09] MEDS ORDERED: Iohexol 350* (CONTRAST) 500 ML MDV IV ONE (01:06)
[2020-01-09 01:08] LABS: HCG Pregnancy 6.16 mIU/mL
[2020-01-09] MEDS ORDERED: NS 0.9% 1000 ML** 1,000 ML IV ONE (01:18)
[2020-01-09] MEDS ORDERED: Ondansetron INJ* 2 MG/ML VIAL IV ONE (01:18)
[2020-01-09] MEDS ORDERED: Potassium Chlor TAB* 20 MEQ TAB.ER PO ONE (01:19)
[2020-01-09] MEDS ORDERED: Clindamycin CAP* 150 MG PO ONE (02:52)
[2020-01-09 02:54] LABS: Rapid Strep Molecular Negative (Negative)
[2020-01-09 02:55] LABS: Urine Appearance Cloudy; Urine Bilirubin Negative (Negative); Urine Blood Negative (Negative); Urine Color Amber; Urine Glucose Negative (Negative); Urine Ketones Negative (Negative); Urine Nitrite Negative (Negative); Urine Protein 1+(30 mg/dL) (Negative); Urine Specific Gravity 1.055 (1.010-1.030); Urine Urobilinogen Negative (Negative)
[2020-01-09] MEDS ORDERED: Ibuprofen TAB* 600 MG PO ONE (02:58)
[2020-01-09] MEDS ORDERED: Benzonatate CAP* 100 MG PO ONE (02:58)
[2020-01-09 03:05] LABS: Influenza A Molecular Negative (Negative); Influenza B Molecular Negative (Negative)
[2020-01-09 03:06] LABS: Urine Bacteria Absent (Absent); Urine Red Blood Cell Absent (Absent); Urine Squamous Epithelial Cell Present (Absent); Urine White Blood Cell 1+(6-10/hpf) (Absent)
[2020-01-09] MEDS ORDERED: Acetaminophen TAB* 325 MG PO ONE (03:40)
[2020-01-09] MEDS ORDERED: Acetaminophen TAB* 325 MG ONE (03:40)
[2020-01-09 03:56] VITALS: BP 101/65
== END 2020-01-09 04:02 | disposition home or self-care (01) ==
LOC: ED 19:38
DX: J18.9 Pneumonia, unspecified organism (principal); E87.6 Hypokalemia; R50.9 Fever, unspecified; R05 Cough; R06.02 Shortness of breath; R07.9 Chest pain, unspecified; R51 Headache; R19.7 Diarrhea, unspecified; K21.9 Gastro-esophageal reflux disease without esophagitis; F17.210 Nicotine dependence, cigarettes, uncomplicated; Z88.6 Allergy status to analgesic agent; Z88.0 Allergy status to penicillin; Z79.899 Other long term (current) drug therapy
CPT/HCPCS: 36415; 71046; 71275; 80053; 81003; 81015; 83605; 84484; 84702; 85025; 86140; 87086; 87651; 93005; 96361; 96374; 99284; A9270-GY; J2405; Q9967

== ENCOUNTER 2020-02-20 23:18 | Emergency (ER) | payer SELFPAY ==
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
[2020-02-21 01:12] LABS: ABS Basophils 0.1 10^3/ul (0-0.2); ABS Lymphocytes 2.4 10^3/ul (1.0-4.8); ABS Monocytes 0.2 10^3/ul (0-0.8); Eosinophil % 0.4 %; Hematocrit 36 % (35-47); Hemoglobin 12.5 g/dL (12.0-16.0); Lymphocyte % 35.6 %; Mean Corpuscular HGB Conc 34 g/dL (31-36); Mean Corpuscular Hemoglobin 33 pg (27-31); Mean Corpuscular Volume 95 fL (80-97); Mean Platelet Volume 6.4 fL (7.4-10.4); Platelet Count 326 10^3/uL (150-450); Red Blood Count 3.83 10^6 /uL (3.70-4.87); Red Cell Distribution Width 14 % (10-15); White Blood Count 6.7 10^3/uL (3.5-10.8)
[2020-02-21 01:31] LABS: ALT 14 U/L (7-52); AST 26 U/L (13-39); Albumin 3.8 g/dL (3.2-5.2); Albumin/Globulin Ratio 1.2 (1-3); Alkaline Phosphatase 120 U/L (34-104); Anion Gap 10 mmol/L (2-11); BUN/Creatinine Ratio 8.3 (8-20); Blood Urea Nitrogen 4 mg/dL (6-24); CO2 Carbon Dioxide 24 mmol/L (22-32); Calcium 8.3 mg/dL (8.6-10.3); Chloride 101 mmol/L (101-111); EGFR African American 167.7 (>60); EGFR Non-African American 138.6 (>60); Globulin 3.1 g/dL (2-4); Glucose 75 mg/dL (70-100); Potassium 3.6 mmol/L (3.5-5.0); Sodium 135 mmol/L (135-145); Total Protein 6.9 g/dL (6.4-8.9)
[2020-02-21 01:36] LABS: HCG Pregnancy 3.13 mIU/mL
[2020-02-21 01:53] LABS: Acetaminophen < 15 mcg/mL; Salicylate < 2.50 mg/dL (<30)
[2020-02-21 02:04] LABS: Alcohol 428 mg/dL (<10)
[2020-02-21 06:21] VITALS: BP 110/87
--- OUTSIDE RECORDS SUMMARY | 2020-02-21 06:35 | XMS REPORT | Continuity of Care Document ---
:1975 External Reference #:[id number] Author Name Siddharth Gamez NP Address [address] [facility], [address] [place] [id number] Care Team Providers Name Role Phone Radha Smart MD - Internal Care Team Information [employer]oving Winder Medicine Problems Active Problems Provider Date Postconcussion [...] Medications SIG Qnty Indications Ordering Date Provider Acetaminophen-Codei one by mouth every 21tabs M79.644 Siddharth Gamez NP 02/05 ne #4 8 hours as needed 300-60mg for pain Tablets Tylenol Extra 1-2 tabs by mouth 90tabs Siddharth Gamez NP 10/26/2019 Strength every 6 hours as 500mg needed Tablets Cheratussin ac 5-10ml every 6 200ml J20.9 Siddharth Gamez NP 10/10/2019 hours as needed 100-10mg/5ML cough. Solution Butalbital/Acetamin 1-2 capsules every 30caps Siddharth Gamez NP 10/10/2019 ophen/Caffeine 12 hours as needed for headache 50-325-40mg Capsules Baclofen Take 1/2-1 Tablet 60tabs M54.12 Siddharth Gamez NP 10/08/2019 10mg By Mouth Every 8 Tablets Hours as Needed For Muscle Spasm Lidocaine apply to affected 30gm M51.16 Siddharth Gaemz NP 09/25/2019 4% Cream areas 3 or [...] NP 06/26/2019 10mg needed Inhaler Cetirizine HCL Take 1 Tablet By 30tabs Siddharth Gamez NP 05/25/2019 10mg Mouth Every Day Tablets Benzonatate take one or two 30caps J20.9 Emily Jacquelyn, 11/13/2018 100mg capsules every 8 M.D., FACP Capsules hours as needed for cough. Ventolin HFA 2 puffs by mouth 8units J20.9 Siddharth Gamez NP 10/13/2018 four times a day 108(90Base) mcg/Act as needed Aerosol Wrist Brace wear at night 1units G56.02 Ameena Correa MD 02/11/2017 Ultra-Lite Carpal Tunnel/One Size Misc Omeprazole Take 1 Capsule By 30caps Siddharth Gamez NP 12/31/2015 20mg Mouth Every Day Capsules DR History Medications Prednisone take 4 tab daily 20tabs J20.9 Siddharth Gamez NP 10/10/2019 - 10mg Tablets x 2 days then 3 10/13/2019 tab daily x 2 days, then 2 tab daily for 2 day, and 1 tab for 2 day. Azithromycin 2 tabs by mouth 6tabs J01.90 Siddharth Gamez NP 10/10/2019 - 250mg every day x1 10/13/2019 Tablets day, 1 tab by mouth every day x 4 days Tylenol Extra 2 by mouth as 90tabs [...] M51.16 Siddharth Gamez NP 09/19/2019 - 5% Ointment areas three 09/25/2019 times a day as needed Metaxalone 1-2 tabs 3 times 60tabs M54.12 Siddharth Gamez NP 09/19/2019 - 400mg daily as needed. 09/23/2019 Tablets Medications Administered in Office Medication SIG Qnty Indications Ordering Provider Date Records Fee Lawrence Nazario MD 11/27/2019 Injection Immunizations Description No Information Available Vital Signs [...] Date Facility Test Result H/L Range Note Laboratory test 01/09/2020 [facility] Rapid Strep A Negative Negative 1 finding [address] [place] [address] [phone] Influenza A & B 01/09/2020 [facility] Flu AB (SEE NOTE) 2 Request [address] [facility] [place] [address] [phone] Influenza A Molecular Negative Negative Influenza B Molecular Negative Negative 3 CBC Auto 01/09/2020 [facility] White Blood 9.8 10^3/uL Normal 3.5-10.8 Diff [address] [facility] [place] [address] [phone] Red Blood Count 3.77 10^6/uL Normal 3.70-4.87 Hemoglobin 12.1 g/dL Normal 12.0-16.0 Hematocrit 35 % Normal 35-47 Mean Corpuscular Volume 94 fL Normal 80-97 Mean Corpuscular Hemoglobin 32 pg High 27-31 Mean Corpuscular HGB Conc 34 g/dL Normal 31-36 Red Cell Distribution Width 14 % Normal 10-15 Platelet Count 197 10^3/uL Normal 150-450 Mean Platelet Volume 7.1 fL Low 7.4-10.4 Abs Neutrophils 6.8 10^3/uL Normal 1.5-7.7 Abs Lymphocytes 2.2 10^3/uL Normal 1.0-4.8 Abs Monocytes 0.7 10^3/uL Normal 0-0.8 Abs Eosinophils 0.0 10^3/uL Normal 0-0.6 Abs Basophils 0.1 10^3/uL Normal 0-0.2 Abs Nucleated RBC 0.0 10^3/uL Granulocyte % 69.1 % Lymphocyte % 22.9 % Monocyte % 7.5 % Eosinophil % 0.0 % Basophil % 0.5 % Nucleated Red Blood Cells % 0.0 Laboratory test 01/09/2020 [facility] Lactic Acid 1.6 mmol/L Normal 0.5-2.0 4 finding [address] [place] [address] [phone] Urinalysis 01/09/2020 [facility] Urine Color Pratibha Profile [address] [place] [address] [phone] Urine Appearance Cloudy Urine Specific [place] 1.055 High 1.010-1.030 Urine pH 5.0 Normal 5-9 Urine Urobilinogen Negative Negative Urine Ketones Negative Negative Urine Protein 1+(30 mg/dL) Abnormal Negative Urine Leukocytes Negative Negative Urine Blood Negative Negative Urine Nitrite Negative Negative Urine Bilirubin Negative Negative Urine Glucose Negative Negative Urine White Blood Cell 1+(6-10/hpf) Abnormal Absent Urine Red Blood Cell Absent Absent Urine Bacteria Absent Absent Urine Squamous Epithelial Cell Present Abnormal Absent Urine Hyaline Casts Present Abnormal Absent Comp Metabolic Panel 01/09/2020 [facility] Sodium 132 mmol/L Low 135-[address] [place] [address] [phone] Potassium 3.2 mmol/L Low 3.5-5.0 Chloride 95 mmol/L Low 101-111 Co2 Carbon Dioxide 29 mmol/L Normal 22-32 Anion Gap 8 mmol/L Normal 2-11 Glucose 101 mg/dL High 70-100 Blood Urea Nitrogen 9 mg/dL Normal 6-24 Creatinine 0.76 mg/dL Normal 0.51-0.95 BUN/Creatinine Ratio 11.8 Normal 8-20 Calcium 8.5 mg/dL Low 8.6-10.3 Total Protein 6.9 g/dL Normal 6.4-8.9 Albumin 3.5 g/dL Normal 3.2-5.2 Globulin 3.4 g/dL Normal 2-4 Albumin/Globulin Ratio 1.0 Normal 1-3 Total Bilirubin 0.40 mg/dL Normal 0.2-1.0 Alkaline Phosphatase 109 U/L High 34-104 Alt 14 U/L Normal 7-52 Ast 25 U/L Normal 13-39 Egfr Non- 81.9 >60 Egfr 99.1 >60 5 Laboratory test 01/09/2020 [facility] C Reactive 268.44 mg/L High <8.[address] [place] [address] [phone] Troponin-I (TnI) 0.00 ng/mL <0.03 6 HCG 6.16 mIU/mL 7 Urine Culture And 01/09/2020 [facility] Urine Culture SEE RESULT [address] [place] [address] [phone] Laboratory test 10/18/2019 [facility] Pathologist (SEE NOTE) [address] [place] [address] [phone] Manual Differential 10/18/2019 [facility] Neutrophil % 30.0 % [address] [place] [address] [phone] Lymphocytes % 64.0 % Monocytes % 2.0 % Eosinophils % 1.0 % Variant Lymph % 3.0 % Normal 0-6 RBC Morphology Normal Normal CBC Auto 10/18/2019 [facility] White Blood 3.3 10^3/uL Low 3.5 -10.[address] [place] [address] [phone] Red Blood Count 3.69 10^6/uL Low 3.70-4.87 Hemoglobin 12.3 g/dL Normal 12.0-16.0 Hematocrit 35 % Normal 35-47 Mean Corpuscular Volume 96 fL Normal 80-97 Mean Corpuscular Hemoglobin 33 pg High 27-31 Mean Corpuscular HGB Conc 35 g/dL Normal 31-36 Red Cell Distribution Width 14 % Normal 10-15 Platelet Count 508 10^3/uL High 150-450 Mean Platelet Volume 5.9 fL Low 7.4-10.4 Abs Neutrophils 0.8 10^3/uL Critical low 1.5-7.7 Abs Lymphocytes 2.3 10^3/uL Normal 1.0-4.8 Abs Monocytes 0.1 10^3/uL Normal 0-0.8 Abs Eosinophils 0.0 10^3/uL Normal 0-0.6 Abs Basophils 0.1 10^3/uL Normal 0-0.2 Abs Nucleated RBC 0.0 10^3/uL Nucleated Red Blood Cells % 0.1 Laboratory test 10/18/2019 [facility] Creatine 91 U/L Normal 10-[address] Kinase(CK) [place] [address] [phone] Acetaminophen < 15 g/mL 10 Salicylate < 2.50 mg/dL <30 Alcohol 459 mg/dL Critical high <10 11 HCG < 0.60 mIU/mL 12 TSH (Thyroid Stim Horm) 0.47 mcIU/mL Normal 0.34-5.60 Comp Metabolic 10/18/2019 [facility] Sodium 141 mmol/L Normal 135-[address] [place] [address] [phone] Chloride 106 mmol/L Normal 101-111 Co2 Carbon Dioxide 27 mmol/L Normal 22-32 Glucose 87 mg/dL Normal 70-100 Blood Urea Nitrogen 5 mg/dL Low 6-24 Creatinine 0.70 mg/dL Normal 0.51-0.95 BUN/Creatinine Ratio 7.1 Low 8-20 Calcium 8.3 mg/dL Low 8.6-10.3 Total Protein 6.5 g/dL Normal 6.4-8.9 Albumin 3.4 g/dL Normal 3.2-5.2 Globulin 3.1 g/dL Normal 2-4 Albumin/Globulin Ratio 1.1 Normal 1-3 Total Bilirubin 0.20 mg/dL Normal 0.2-1.0 Alkaline Phosphatase 88 U/L Normal 34-104 Alt 24 U/L Normal 7-52 Egfr Non- 90.1 >60 Egfr 109.0 >60 13 Potassium 4.0 mmol/L Normal 3.5-5.0 Anion Gap 8 mmol/L Normal 2-11 Ast 40 U/L High 13-39 Urine Drug 10/18/2019 [facility] Urine None Detected None Detect SCR ED & [address] A[place] [address] Screen [phone] Urine Barbiturates Screen None Detected None Detect Urine Benzodiazepine Screen None Detected None Detect Urine Cannabinoids Screen None Detected None Detect Urine Cocaine Screen None Detected None Detect Urine Opiates Screen None Detected None Detect Urine Phencyclidine Screen None Detected None Detect 14 Urinalysis Profile 10/18/2019 [facility] Urine Color Straw [address] [place] [address] [phone] Urine Appearance Clear Urine Specific [place] 1.002 Low 1.010-1.030 Urine pH 6.0 Normal 5-9 Urine Urobilinogen Negative Negative Urine Ketones Negative Negative Urine Protein Negative Negative Urine Leukocytes Negative Negative Urine Blood Negative Negative Urine Nitrite Negative Negative Urine Bilirubin Negative Negative Urine Glucose Negative Negative Laboratory test 10/18/2019 [facility] Lactic Acid 1.6 mmol/L Normal 0.5-2.0 [address] [place] [address] [phone] Xray 09/19/2019 [facility] SP Cervical <pending> [address] 4+[place] [address] [phone] SP Lumbarsacral 4+ VWS <pending> 1 Conduit Helper: [id number] Suboptimal collection technique may reduce sensitivity of test. Refer to the [employer] Test Catalog for collection information: [email or web address] As with all diagnostic procedures, the laboratory results obtained should be used in conjunction with other clinical information available to the physician, including confirmation by another method, as applicable. 2 Suboptimal collection technique may reduce sensitivity of test. Refer to the [employer] Test Catalog for collection information: [email or web address] As with all diagnostic procedures, the laboratory results obtained should be used in conjunction with other clinical information available to the physician, including confirmation by another method, as applicable. 3 Conduit Helper: [id number] 4 Specimen hemolyzed. Result may not be valid. IDS Severe Sepsis and Septic Shock Management Bundle Measure requires all lactic acids initially measuring >2.0 mmol/L be repeated. 5 Because ethnic data is not always readily [...] 15-29 5 Kidney failure <15 (or dialysis) 6 Troponin-I testing on Plasma Separator Tubes (PST) has a known false positive rate of 0.20-0.40%. All positive troponins reflex immediately to secondary confirmatory testing. Using the [employer] DxI 800 Access Immunoassay systems, the 99th percentile upper reference limit was demonstrated to be < 0.03 ng/mL. 7 <5.0 Negative 5.0 - 25.0 Indeterminate (Repeat testing recommended after 72 hours) >25.0 Positive Perimenopausal women can display HCG levels of up to 20 mIU/mL 8 SEE RESULT BELOW Name: KAMI DIAZ : [address]: Marbella Heredia MD Acct: [id number] Unit: [id number] AGE: 44 Location: ED Re01/08/20 SEX: F Status: DEP ER SPEC: [id number] ANNA: 01/09/20-[address]: Lawrence BOWEN REQ: [id number] RECD: 01/09/20 STATUS: ALEX GAMINO DR: [facility] Siddharth Gamez SR. UNIX SYSTEM ADMINISTRATOR _ SOURCE: URINE SPDESC: ORDERED: Urine Culture Procedure Result Reported Site Urine Culture Final 01/10/20- 1407 ML No growth of clinically significant organisms * ML - Main Lab . END OF REPORT DEPARTMENT OF PATHOLOGY, [address] [place] [address] Corby Barnett M.D. Director [facility] # [id number] 9 Absolute neutropenia. Reviewed by Zoya Garnica MD 10 Therapeutic concentration: <50 ug/mL Toxic concentration: >120 ug/mL 11 Critical Result ETOH:458.7 Called to [id number] at: 18:14:56 by:[email or web address] Read back by:[email or web address] 12 <5.0 Negative 5.0 - 25.0 Indeterminate (Repeat testing recommended after 72 hours) >25.0 Positive Perimenopausal women can display HCG levels of up to 20 mIU/mL 13 Because ethnic data is not always [...] 15-29 5 Kidney failure <15 (or dialysis) 14 The urine specimen was tested at the listed cutoffs: Drug class test level (ng/mL) Amphetamines 500 Barbiturates 200 Benzodiazepine metabolites 200 Cocaine metabolites 150 Cannabinoids 50 Opiates 300 Pcp 25 Specimen was received without chain of custody. Results should be used for medical purposes only. 15 [facility] Severe Sepsis and Septic Shock Management Bundle Measure requires all lactic acids initially measuring >2.0 mmol/L be repeated. Procedures Description No Information Available Medical Devices Description No Information Available Encounters Type Date Location Provider Dx Diagnosis Office Visit 10/10/2019 [employer] [facility] Internal Siddharth Gamez NP J01.90 Acute sinusitis , 11:40a Medicine - Ccmob unspecified J20.9 Acute bronchitis, unspecified R51 Headache Office Visit 09/19/2019 11:40a Membership Sales Manager Internal Siddharthned Gamez, M51.16 Intervertebral disc Medicine - SR. UNIX SYSTEM ADMINISTRATOR disorders w Ccmob radiculopathy, lumbar region M79.601 Pain in right arm R20.0 Anesthesia of skin G43.009 Migraine w/o aura, not intractable, w/o status migrainosus Assessments Date Code Description Provider 02/06/2020 R05 Cough Siddharthned Gamez, SR[employer] UNIX SYSTEM ADMINISTRATOR 02/06/2020 J30.89 Other allergic rhinitis Siddharthned Gamez, SR[employer] UNIX SYSTEM ADMINISTRATOR 02/06/2020 M79.644 Pain in right finger(s) Siddharth Gamez SR[employer] UNIX SYSTEM ADMINISTRATOR 10/10/2019 J01.90 Acute sinusitis, unspecified Siddharth Vera, SR. UNIX SYSTEM ADMINISTRATOR 10/10/2019 J20.9 Acute bronchitis, unspecified Siddharthned Gamez, SR. UNIX SYSTEM ADMINISTRATOR 10/10/2019 R51 Headache Siddharthned Gamez, [employer] UNIX SYSTEM ADMINISTRATOR 09/19/2019 M51.16 Intervertebral disc disorders with radiculopathy, Siddharthned Gamez, SR. UNIX SYSTEM ADMINISTRATOR lumbar region 09/19/2019 M79.601 Pain in right arm Siddharthned Gamez, SR[employer] UNIX SYSTEM ADMINISTRATOR 09/19/2019 R20.0 Anesthesia of skin Siddharth Gamez, SR. UNIX SYSTEM ADMINISTRATOR 09/19/2019 G43.009 Migraine without aura, not intractable, without Siddharth Vera, SR. UNIX SYSTEM ADMINISTRATOR status migrainosus Plan of Treatment 02/06/2020 - Siddharth Gamez, NPR05 CoughNew Xrays:Chest PA & Lat 2 VWS, Ordered : 02/06/20Comments:The cough from having pneumonia can persist for several months.I have renewed the cough medication to help with sleep.Have the repeat chest xray done with the xray of your finger.Start using the new inhaler, two puffs twice daily. Rinse your mouth after use. You can keep using the albuterol inhaler asneeded.J30.89 Other allergic rhinitisComments:Take the cetirizine daily for at least the next two weeks.M79.644 Pain in right finger(s)New Medication:Acetaminophen-Codeine #4 300-60 mg - one by mouth every 8 hours as needed for painNew Xrays:Finger Right Small, Ordered: 02/06/20Comments:I recommend wearing the finger splint daily. It is important to have the xray done soon.It is important to try to gently move the finger to prevent it from freezing up as long as the xray is normal. Functional Status Description No Information Available Mental Status Description No Information Available Referrals Refer to Reason for Referral Status Appt Date Madonna Roach MD Sent 09/26/2019 [address] [place] [address] [place] [address] [phone]
--- OUTSIDE RECORDS SUMMARY | 2020-02-21 06:35 | XMS REPORT | Continuity of Care Document ---
:1975 External Reference #:[id number] Author Name Siddharth Gamez NP (transmitted by agent of provider Rosmery Chakraborty) Address [address] [facility] [facility], [address] [place] [id number] Care Team Providers Name Role Phone Radha Smart MD - Internal Care Team Information Tool Room Machinist [phone] Medicine Problems Active Problems Provider Date Postconcussion syndrome mAeena Correa MD Onset: 12/15/2015 Other seizures Ameena [...] Medications SIG Qnty Indications Ordering Date Provider Tylenol Extra 1-2 tabs by mouth 90tabs [...] Omeprazole Take 1 Capsule By 30caps Siddharth Gamez, [employer] 12/31/2015 20mg Mouth Every Day Capsules DR History Medications Acetaminophen-Codeine #4 one by mouth 21tabs M79.644 Siddharth Gamez, 2019 - 300-60mg every 8 hours [employer] 02/12/2020 Tablets as needed for pain Prednisone take 4 tab 20tabs J20.9 Siddharth Gamez, 10/10/2019 - 10mg Tablets daily x 2 days [employer] 10/13/2019 then 3 tab daily x 2 days, then 2 tab daily for 2 day, and 1 tab for 2 day. Azithromycin 2 tabs by 6tabs J01.90 Siddharth Gamez, 10/10/2019 - 250mg Tablets mouth every [employer] 10/13/2019 day x1 day, 1 tab by mouth every day x 4 days Tylenol Extra Strength 2 by mouth as 90tabs Siddharth Gamez, 10/08/2019 - 500mg Tablets needed [employer] 10/10/2019 Tizanidine HCL 1-2 tabs three 60tabs M54.12 Siddharth Gamez, 09/26/2019 - 2mg Tablets times daily as [employer] 10/08/2019 needed Tizanidine HCL 1 cap by mouth 30caps M54.12 Siddharth Gamez, 09/23/2019 - 2mg Capsules every 8 hours [employer] 09/26/2019 as needed Lidocaine apply to 70.88gm M51.16 Siddharth Gamez, 09/19/2019 - 5% Ointment painful areas [employer] 09/25/2019 three times a day as needed Metaxalone 1-2 tabs 3 60tabs M54.12 Siddharth Gamez, 09/19/2019 - 400mg Tablets times daily as [employer] 09/23/2019 needed. Medications Administered in Office Medication SIG Qnty [...] Result H/L Range Note Laboratory test 01/09/2020 [facility] Rapid Strep A Negative Negative [address] [place] [address] [phone] Influenza A & B 01/09/2020 [facility] Flu AB (SEE NOTE) [address] Dis[address] [place], [place] [id number] [phone] Influenza A Molecular Negative Negative Influenza B Molecular Negative Negative 3 CBC Auto 01/09/2020 [facility] White Blood 9.8 10^3/uL Normal 3.5-10.8 Diff [address] [facility] [place] [address] [phone] Red Blood Count 3.77 10^6/uL Normal 3.70-4.87 [...] Blood Cells % 0.0 Laboratory test 01/09/2020 [facility] Lactic Acid 1.6 mmol/L Normal 0.5-2.0 4 finding [address] [place] [address] [phone] Urinalysis 01/09/2020 [facility] Urine Color Pratibha Profile [address] [place] [address] [phone] Urine Appearance Cloudy Urine Specific Wittmann 1.055 High 1.010-1.030 Urine pH 5.0 Normal [...] Present Abnormal Absent Comp Metabolic Panel 01/09/2020 [facility] Sodium 132 mmol/L Low 135-[address] [place] [address] [phone] Potassium 3.2 mmol/L Low 3.5-5.0 Chloride 95 [...] Egfr 99.1 >60 5 Laboratory test 01/09/2020 [facility] C Reactive 268.44 mg/L High <8.[address] [place] [address] [phone] Troponin-I (TnI) 0.00 ng/mL <0.03 6 HCG 6.16 mIU/mL 7 Urine Culture And 01/09/2020 [facility] Urine Culture SEE RESULT [address] [place] [address] [phone] Laboratory test 10/18/2019 [facility] Pathologist (SEE NOTE) [address] [place] [address] [phone] Manual Differential 10/18/2019 [facility] Neutrophil % 30.0 % [address] [place] [address] [phone] Lymphocytes % 64.0 % Monocytes % 2.0 % Eosinophils % 1.0 % Variant Lymph % 3.0 % Normal 0-6 RBC Morphology Normal Normal CBC Auto 10/18/2019 [facility] White Blood 3.3 10^3/uL Low 3.5 -10.[address] [place] [address] [phone] Red Blood Count 3.69 10^6/uL Low 3.70-4.87 [...] Blood Cells % 0.1 Laboratory test 10/18/2019 [facility] Creatine 91 U/L Normal 10-[address] Kinase(CK) [place] [address] [phone] Acetaminophen < 15 g/mL 10 Salicylate < 2.50 mg/dL <30 Alcohol 459 mg/dL Critical high <10 11 HCG < 0.60 mIU/mL 12 TSH (Thyroid Stim Horm) 0.47 mcIU/mL Normal 0.34-5.60 Comp Metabolic 10/18/2019 [facility] Sodium 141 mmol/L Normal 135-[address] [place] [address] [phone] Chloride 106 mmol/L Normal 101-111 Co2 Carbon [...] 40 U/L High 13-39 Urine Drug 10/18/2019 [facility] Urine None Detected None Detect SCR ED & [address] [facility] [place] [address] Screen [phone] Urine Barbiturates Screen None Detected None Detect Urine Benzodiazepine Screen None Detected None Detect Urine Cannabinoids Screen None Detected None Detect Urine Cocaine Screen None Detected None Detect Urine Opiates Screen None Detected None Detect Urine Phencyclidine Screen None Detected None Detect 14 Urinalysis Profile 10/18/2019 [facility] Urine Color Straw [address] [place] [address] [phone] Urine Appearance Clear Urine Specific Wittmann 1.002 Low 1.010-1.030 Urine pH 6.0 Normal 5-9 Urine Urobilinogen Negative Negative Urine Ketones Negative Negative Urine Protein Negative Negative Urine Leukocytes Negative Negative Urine Blood Negative Negative Urine Nitrite Negative Negative Urine Bilirubin Negative Negative Urine Glucose Negative Negative Laboratory test 10/18/2019 [facility] Lactic Acid 1.6 mmol/L Normal 0.5-2.0 15 finding [address] [place] [address] [phone] Xray 09/19/2019 [facility] SP Cervical <pending> [address] 4+[place] [address] [phone] SP Lumbarsacral 4+ VWS <pending> 1 Linker Up: [id number] Suboptimal collection technique may reduce sensitivity of test. Refer to the [employer] Test Catalog for collection information: [email or web address] As with all diagnostic procedures, the laboratory results obtained should be used in conjunction with other clinical information available to the physician, including confirmation by another method, as applicable. 2 Suboptimal collection technique may reduce sensitivity of test. Refer to the [employer] Test Catalog for collection information: [email or web address] As with all diagnostic procedures, the laboratory results obtained should be used in conjunction with other clinical information available to the physician, including confirmation by another method, as applicable. 3 Linker Up: [id number] 4 Specimen hemolyzed. Result may not be valid. [facility] Severe Sepsis and Septic Shock Management Bundle [...] immediately to secondary confirmatory testing. Using the [employer] DxI 800 Access Immunoassay systems, the 99th percentile upper reference limit was demonstrated to be < 0.03 ng/mL. 7 <5.0 Negative 5.0 - 25.0 Indeterminate (Repeat testing recommended after 72 hours) >25.0 Positive Perimenopausal women can display HCG levels of up to 20 mIU/mL 8 SEE RESULT BELOW Name: KAMI DIAZ : [address]: Marbella Heredia MD Acct: [id number] Unit: [id number] AGE: 44 Location: ED Re01/08/20 SEX: F Status: DEP ER SPEC: [id number] ANNA: 01/09/20-[address]: Lawrence BOWEN REQ: [id number] RECD: 01/09/20 STATUS: ALEX GAMINO DR: [facility] Siddharth Gamez [employer] _ SOURCE: URINE SPDESC: ORDERED: Urine Culture Procedure Result Reported Site Urine Culture Final 01/10/20- 1407 ML No growth of clinically significant organisms * ML - Main Lab . END OF REPORT DEPARTMENT OF PATHOLOGY, [address] [place] [address] Corby Barnett M.D. Director [facility] # [id number] 9 Absolute neutropenia. Reviewed by Zoya Garnica MD 10 Therapeutic concentration: <50 ug/mL Toxic concentration: >120 ug/mL 11 Critical Result ETOH:458.7 Called to [id number] at: 18:14:56 by:[id number] Read back by:[id number] 12 <5.0 Negative 5.0 - 25.0 Indeterminate [...] be used for medical purposes only. [address] [facility] Severe Sepsis and Septic Shock Management Bundle Measure requires all lactic acids initially measuring >2.0 mmol/L be repeated. Procedures Description No Information Available Medical Devices Description No Information Available Encounters Type Date Location Provider Dx Diagnosis Office Visit 02/06/2020 2:40p [facility] - Siddharth Vera, [employer] R05 Cough Ccmob J30.89 Other allergic rhinitis M79.644 Pain in right finger(s) R06.02 Shortness of breath Office Visit 10/10/2019 11:40a [facility] Siddharth Vera, J01.90 Acute sinusitis, Medicine - Ccmob [employer] unspecified J20.9 Acute bronchitis, unspecified R51 Headache Office Visit 09/19/2019 11:40a [facility] Siddharth Vera, M51.16 Intervertebral disc Medicine - [employer] disorders w Ccmob radiculopathy, lumbar region M79.601 Pain in right arm R20.0 Anesthesia of skin G43.009 Migraine w/o aura, not intractable, w/o status migrainosus Assessments Date Code Description Provider 02/06/2020 R05 Cough Siddharth Vera, [employer] 02/06/2020 J30.89 Other allergic rhinitis Siddharth Vera, [employer] 02/06/2020 M79.644 Pain in right finger(s) Siddharth Vera, [employer] 02/06/2020 R06.02 Shortness of breath Siddharth Vera, [employer] 10/10/2019 J01.90 Acute sinusitis, unspecified Siddharth Vera, [employer] 10/10/2019 J20.9 Acute bronchitis, unspecified Siddharth Vera, [employer] 10/10/2019 R51 Headache Siddharth Vera, [employer] 09/19/2019 M51.16 Intervertebral disc disorders with radiculopathy, Siddharth Vera, [employer] lumbar region 09/19/2019 M79.601 Pain in right arm Siddharth Vera, [employer] 09/19/2019 R20.0 Anesthesia of skin Siddharth Vera, [employer] 09/19/2019 G43.009 Migraine without aura, not intractable, without Siddharth Vera, [employer] status migrainosus Plan of Treatment 02/06/2020 - Siddharthned Gamez, NPR05 CoughComments:The cough from having pneumonia can persist for several months.I have renewed the cough medication to help with sleep.Have the repeat chest xray done with the xray of your finger.Start using the new inhaler, two puffs twice daily. Rinse your mouth after use. You can keep using the albuterol inhaler asneeded.J30.89 Other allergic rhinitisComments :Take the cetirizine daily for at least the next two weeks.M79.644 Pain in right finger(s)New Medication:Acetaminophen-Codeine #4 300-60 mg - one by mouth every 8 hours as needed for painComments:I recommend wearing the finger splint daily. It is important to have the xray done soon.It is important to try to gently move the finger to prevent it from freezing up as long as the xray is normal.R06.02 Shortness of breath Functional Status Description No Information Available Mental Status Description No Information Available Referrals Refer to Reason for Referral Status Appt Date Madonna Roach MD Sent 09/26/2019 [address] [place] [address] [place] [address] [phone]
== END 2020-02-21 06:37 | disposition home or self-care (01) ==
LOC: ED 23:18
DX: T51.0X1A Toxic effect of ethanol, accidental (unintentional), initial encounter (principal); Y92.9 Unspecified place or not applicable; R51 Headache; F17.210 Nicotine dependence, cigarettes, uncomplicated; K21.9 Gastro-esophageal reflux disease without esophagitis; R10.9 Unspecified abdominal pain; Z88.6 Allergy status to analgesic agent; Z88.0 Allergy status to penicillin; Z79.899 Other long term (current) drug therapy
CPT/HCPCS: 36415; 80053; 80320; 80329; 84702; 85025; 99284; G0480

== ENCOUNTER 2022-01-02 16:15 | Inpatient (IN) ==
[2022-01-02] MEDS ORDERED: fentaNYL 100 mcg/2 ml 50 MCG/ML VIAL IV SLOW PU ONE (16:23)
[2022-01-02 18:00] LABS: ABS Lymphocytes 3.7 10^3/ul (1.0-4.8); ABS Monocytes 0.2 10^3/ul (0-0.8); Eosinophil % 0.3 %; Hematocrit 32 % (35-47); Lymphocyte % 46.2 %; Mean Corpuscular HGB Conc 35 g/dL (31-36); Mean Corpuscular Hemoglobin 33 pg (27-31); Mean Corpuscular Volume 96 fL (80-97); Mean Platelet Volume 7.2 fL (7.4-10.4); Platelet Count 371 10^3/uL (150-450); Red Blood Count 3.32 10^6 /uL (3.70-4.87); Red Cell Distribution Width 14 % (10-15)
[2022-01-02] MEDS ORDERED: Ondansetron 4 mg VIAL 2 MG/ML 2 ml VIAL IV ONE (18:03)
[2022-01-02] MEDS ORDERED: Morphine 4 MG/ML VIAL (1 ml) IV ONE (18:03)
[2022-01-02 18:09] LABS: INR 1.07 (0.86-1.15)
[2022-01-02 18:19] LABS: Albumin 3.8 g/dL (3.2-5.2); Albumin/Globulin Ratio 1.5 (1-3); Calcium 8.6 mg/dL (8.6-10.3); Globulin 2.5 g/dL (2-4); Potassium 3.1 mmol/L (3.5-5.0); Total Bilirubin 0.4 mg/dL (0.2-1.0); Total Protein 6.3 g/dL (6.4-8.9); eGFR CKD-EPI 107.7 (>60)
[2022-01-02 19:37] LABS: Magnesium 1.5 mg/dL (1.9-2.7)
[2022-01-02] MEDS ORDERED: Diazepam INJ CARPUJECT 5 MG/ML IV ONE (19:54)
[2022-01-02] MEDS ORDERED: Magnesium Sulf 4 GM/100 ML IV 4,000 MG/100 ML BAG IVPB ONE (19:59)
[2022-01-02] MEDS ORDERED: Lactated Ringers 1000 ml BAG 1,000 ML IV SCH (20:00)
[2022-01-02] MEDS: KCL 20 MEQ/100 ML IVPREMIX 20 MEQ/100 ML BAG IV SCH (20:19)
[2022-01-02] MEDS: Ondansetron 4 mg VIAL 2 MG/ML 2 ml VIAL IV PRN (20:29)
[2022-01-02] MEDS ORDERED: Acetaminophen IV 1 GM/100ML 100 ML IV ONE (20:33)
[2022-01-02] MEDS ORDERED: Acetaminophen IV 1 GM/100ML 100 ML IV PRN (20:38)
[2022-01-02] MEDS ORDERED: Albuterol HFA INHALER 8 gm MDI INH PRN (22:11)
[2022-01-03] MEDS: Pantoprazole VIAL 40 MG VIAL IV SCH ×2 (00:08→10:41)
[2022-01-03] MEDS: KCL 20 MEQ/100 ML IVPREMIX 20 MEQ/100 ML BAG IV SCH (01:46)
[2022-01-03] MEDS: Ondansetron 4 mg VIAL 2 MG/ML 2 ml VIAL IV PRN (03:54)
[2022-01-03 06:14] LABS: ABS Lymphocytes 2.2 10^3/ul (1.0-4.8); ABS Monocytes 0.3 10^3/ul (0-0.8); ABS Neutrophils 5.4 10^3/ul (1.5-7.7); Eosinophil % 0.4 %; Hematocrit 33 % (35-47); Hemoglobin 10.9 g/dL (12.0-16.0); Lymphocyte % 27.3 %; Mean Corpuscular HGB Conc 33 g/dL (31-36); Mean Corpuscular Hemoglobin 32 pg (27-31); Mean Corpuscular Volume 96 fL (80-97); Mean Platelet Volume 7.2 fL (7.4-10.4); Nucleated Red Blood Cells % 0.1; Platelet Count 328 10^3/uL (150-450); Red Blood Count 3.39 10^6 /uL (3.70-4.87); Red Cell Distribution Width 14 % (10-15)
[2022-01-03 06:36] LABS: Calcium 8.4 mg/dL (8.6-10.3); Potassium 4.3 mmol/L (3.5-5.0); eGFR CKD-EPI 108.9 (>60)
[2022-01-03] MEDS ORDERED: Naloxone 0.4 mg VIAL 0.4 mg/ml 1 ml VIAL IV PRN (07:52)
[2022-01-03] MEDS ORDERED: DiMENhydriNATE IV 50 mg/ml 1 ml VIAL IV PUSH PRN (07:52)
[2022-01-03] MEDS ORDERED: Buffered Lidocaine 1% SYRIN 1 ml INTRADERM ONE (07:52)
[2022-01-03] MEDS ORDERED: fentaNYL 100 mcg/2 ml 50 MCG/ML VIAL IV PRN (07:52)
[2022-01-03] MEDS ORDERED: Lactated Ringers 1000 ml BAG 1,000 ML IV SCH (08:00)
[2022-01-03] MEDS ORDERED: Bupivacaine 0.5% W/EPI SDV 10 ML VIAL INJ ONE (08:41)
[2022-01-03] MEDS ORDERED: Propofol 10 MG/ML 20 ML BTL ONE (08:49)
[2022-01-03] MEDS ORDERED: Lidocaine 2% PF 5 ML VIAL ONE (08:49)
[2022-01-03] MEDS ORDERED: fentaNYL 100 mcg/2 ml 50 MCG/ML VIAL ONE ×2 (08:49→13:44)
[2022-01-03] MEDS ORDERED: Midazolam 2 mg/2 ml VIAL 1 mg/ml 2 ml VIAL (2 mg) ONE (08:49)
[2022-01-03] MEDS ORDERED: Rocuronium 50 mg VIAL 10 mg/ml 5 ml VIAL (50 mg) ONE ×2 (08:50→10:36)
[2022-01-03] MEDS ORDERED: ceFAZolin 2 GM in NS PREMIX 2 GM/100 ML BAG IVPB ONE (09:09)
[2022-01-03] MEDS ORDERED: Phenylephrine 40 mcg/mL 10mL (400mcg) SYRINGE ONE ×2 (09:33→09:42)
[2022-01-03] MEDS ORDERED: Phenylephrine IV 10 MG/ML 1 ml VIAL ONE (10:05)
[2022-01-03] MEDS ORDERED: Dexamethasone IV 4 MG/ML VIAL 1 ml VIAL ONE (10:20)
[2022-01-03] MEDS: Fluticasone NASAL SPRAY 50MCG 16 gm SPRAY BTL BOTH NARES SCH (10:41)
[2022-01-03] MEDS ORDERED: Acetaminophen IV 1 GM/100ML 100 ML IV ONE (12:45)
[2022-01-03] MEDS ORDERED: Ondansetron 4 mg VIAL 2 MG/ML 2 ml VIAL ONE (12:45)
[2022-01-03] MEDS ORDERED: HYDROmorphone 1 MG/1 ML SYRINGE IV PRN (13:27)
[2022-01-03] MEDS ORDERED: Bupivacaine 0.25% EPI 200,000 30 ML SDV ONE (13:44)
[2022-01-03] MEDS: Lactated Ringers 1000 ml BAG 1,000 ML IV SCH (15:36)
[2022-01-03] MEDS: ceFAZolin 1 GM X 3 DOSES POST-OP Q8H (AddVan) IVPB SCH (18:06)
[2022-01-03] MEDS: HYDROcodone/ACETAMIN 5/325 mg TAB PO PRN ×2 (18:08→22:13)
[2022-01-04] MEDS: HYDROcodone/ACETAMIN 5/325 mg TAB PO PRN ×4 (04:42→21:35)
[2022-01-04] MEDS: ceFAZolin 1 GM X 3 DOSES POST-OP Q8H (AddVan) IVPB SCH (05:16)
[2022-01-04 07:33] LABS: Hematocrit 23 % (35-47); Hemoglobin 7.8 g/dL (12.0-16.0); Mean Corpuscular HGB Conc 33 g/dL (31-36); Mean Corpuscular Hemoglobin 33 pg (27-31); Mean Corpuscular Volume 97 fL (80-97); Platelet Count 215 10^3/uL (150-450); Red Blood Count 2.39 10^6 /uL (3.70-4.87); Red Cell Distribution Width 14 % (10-15); White Blood Count 5.1 10^3/uL (3.5-10.8)
[2022-01-04 07:49] LABS: Albumin 2.9 g/dL (3.2-5.2); Albumin/Globulin Ratio 1.5 (1-3); Calcium 7.5 mg/dL (8.6-10.3); Globulin 1.9 g/dL (2-4); Magnesium 1.6 mg/dL (1.9-2.7); Potassium 3.5 mmol/L (3.5-5.0); Total Bilirubin 0.4 mg/dL (0.2-1.0); Total Protein 4.8 g/dL (6.4-8.9); eGFR CKD-EPI 108.9 (>60)
[2022-01-04 07:54] LABS: INR 0.96 (0.86-1.15)
[2022-01-04] MEDS: Pantoprazole VIAL 40 MG VIAL IV SCH (09:15)
[2022-01-04] MEDS: Fluticasone NASAL SPRAY 50MCG 16 gm SPRAY BTL BOTH NARES SCH (09:29)
[2022-01-04] MEDS ORDERED: Magnesium Sulfate 2 gm BAG 2 GM/50 ML BAG IVPB ONE (10:00)
[2022-01-04] MEDS ORDERED: CALCIUM GLUCONATE 1GM/50ML NS 1 GM/50 ML BAG IV ONE (10:01)
[2022-01-04] MEDS ORDERED: Polyethylene Glycol 3350 17 GM PACKET PO PRN (10:38)
[2022-01-04] MEDS ORDERED: Magnesium Hydroxide LIQ 30 ML UDC PO PRN (10:38)
[2022-01-04] MEDS: Nicotine GUM 2MG FRUIT FLAVOR PO PRN (11:03)
[2022-01-04] MEDS: Lactated Ringers 1000 ml BAG 1,000 ML IV SCH (11:03)
[2022-01-04] MEDS ORDERED: ceFAZolin 1 GM X 3 DOSES POST-OP Q8H (AddVan) IVPB SCH (13:00)
[2022-01-05 05:41] LABS: Hematocrit 23 % (35-47); Hemoglobin 7.7 g/dL (12.0-16.0); Mean Corpuscular HGB Conc 34 g/dL (31-36); Mean Corpuscular Hemoglobin 33 pg (27-31); Mean Corpuscular Volume 97 fL (80-97); Platelet Count 218 10^3/uL (150-450); Red Blood Count 2.34 10^6 /uL (3.70-4.87); Red Cell Distribution Width 14 % (10-15); White Blood Count 5.2 10^3/uL (3.5-10.8)
[2022-01-05 05:58] LABS: Calcium 7.9 mg/dL (8.6-10.3); Magnesium 1.6 mg/dL (1.9-2.7); Potassium 3.6 mmol/L (3.5-5.0); eGFR CKD-EPI 112.5 (>60)
[2022-01-05] MEDS: HYDROcodone/ACETAMIN 5/325 mg TAB PO PRN ×2 (06:33→12:43)
[2022-01-05] MEDS ORDERED: Calcium/Vitamin D TAB 250/125 TAB PO SCH (09:00)
[2022-01-05] MEDS: Nicotine GUM 2MG FRUIT FLAVOR PO PRN (09:41)
[2022-01-05] MEDS: Fluticasone NASAL SPRAY 50MCG 16 gm SPRAY BTL BOTH NARES SCH (09:42)
[2022-01-05 15:44] VITALS: BP 100/68
== END 2022-01-05 16:50 | disposition home health service (06) | DRG 308 ==
LOC: ED 16:15 → EDHOLD 20:39 → SSU 22:56
PROVIDERS: ADMIT Nurse Practitioner Family; ATTEND Internal Medicine

== ENCOUNTER 2022-07-17 17:05 | Inpatient (IN) ==
[2022-07-17] MEDS ORDERED: NS 0.9% 1000 ml BAG 1,000 ML IV ONE (20:15)
[2022-07-17 20:48] LABS: ABS Basophils 0.1 10^3/ul (0-0.2); ABS Lymphocytes 2.4 10^3/ul (1.0-4.8); ABS Monocytes 0.3 10^3/ul (0-0.8); ABS Neutrophils 10.1 10^3/ul (1.5-7.7); Eosinophil % 0.3 %; Hematocrit 33 % (35-47); Hemoglobin 11.2 g/dL (12.0-16.0); Lymphocyte % 18.8 %; Mean Corpuscular HGB Conc 34 g/dL (31-36); Mean Corpuscular Hemoglobin 30 pg (27-31); Mean Corpuscular Volume 88 fL (80-97); Mean Platelet Volume 7.1 fL (7.4-10.4); Platelet Count 262 10^3/uL (150-450); Red Blood Count 3.73 10^6 /uL (3.70-4.87); Red Cell Distribution Width 13 % (10-15)
[2022-07-17 20:59] LABS: INR 0.97 (0.89-1.11)
[2022-07-17 21:29] LABS: ALT 16 U/L (7-52); Albumin 3.9 g/dL (3.2-5.2); Albumin/Globulin Ratio 1.6 (1-3); Alcohol, S < 13 mg/dL (<13); Alkaline Phosphatase 55 U/L (35-149); Blood Urea Nitrogen 4 mg/dL (6-24); CO2 Carbon Dioxide 23 mmol/L (22-32); Calcium 7.9 mg/dL (8.6-10.3); Chloride 90 mmol/L (101-111); Globulin 2.5 g/dL (2-4); Glucose 77 mg/dL (70-100); Sodium 123 mmol/L (135-145); Total Protein 6.4 g/dL (6.4-8.9); eGFR CKD-EPI 102.4 (>60)
[2022-07-17 21:38] LABS: Anion Gap 10 mmol/L (2-11)
[2022-07-17] MEDS ORDERED: Thiamine 100 MG/ML 2 ml VIAL 500 MG in NS 0.9% 250 ml 250 ML IV ONE (22:50)
[2022-07-17] MEDS ORDERED: Albuterol HFA INHALER 8 gm MDI INH PRN (23:37)
[2022-07-18 01:46] LABS: Magnesium 0.9 mg/dL (1.9-2.7)
[2022-07-18] MEDS ORDERED: Magnesium Sulf 4 GM/100 ML IV 4,000 MG/100 ML BAG IVPB ONE (01:48)
[2022-07-18] MEDS ORDERED: Potassium Chlor 20 meq TAB.ER PO ONE ×2 (01:51→07:17)
[2022-07-18 02:00] LABS: TSH Ultra Thyroid Stim Horm 1.19 mcIU/mL (0.34-5.60)
[2022-07-18 02:04] LABS: Osmolality Serum 267 mOsm/kg (275-295)
[2022-07-18 02:05] LABS: Phosphorus 3.4 mg/dL (2.5-5.0)
[2022-07-18 04:14] LABS: Urine Appearance Clear; Urine Bilirubin Negative (Negative); Urine Blood Negative (Negative); Urine Color Yellow; Urine Glucose Negative (Negative); Urine Ketones Negative (Negative); Urine Specific Gravity <=1.005 (1.005-1.030)
[2022-07-18 04:15] LABS: Urine Chloride Concentration < 22 mmol/L; Urine Creatinine Concentration 23.55 mg/dL; Urine Nitrite Negative (Negative); Urine Potassium Concentration 3.7 mmol/L; Urine Protein Negative (Negative); Urine Sodium Concentration < 18 mmol/L; Urine Urobilinogen 0.2 (Negative) (Negative); Urine pH 6.5 (5.0-9.0)
[2022-07-18 05:05] LABS: Urine Benzodiazepine Screen None Detected (None Detect); Urine Cannabinoids Screen None Detected (None Detect)
[2022-07-18 05:06] LABS: Urine Opiates Screen None Detected (None Detect)
[2022-07-18] MEDS ORDERED: Nicotine PATCH 21 MG/24 HR PATCH TRANSDERM PRN (05:33)
[2022-07-18 05:51] LABS: ABS Basophils 0.1 10^3/ul (0-0.2); ABS Eosinophils 0.1 10^3/ul (0-0.6); ABS Lymphocytes 1.6 10^3/ul (1.0-4.8); ABS Monocytes 0.4 10^3/ul (0-0.8); ABS Neutrophils 7.1 10^3/ul (1.5-7.7); Hematocrit 33 % (35-47); Hemoglobin 11.1 g/dL (12.0-16.0); Lymphocyte % 17.6 %; Mean Corpuscular HGB Conc 34 g/dL (31-36); Mean Corpuscular Hemoglobin 30 pg (27-31); Mean Corpuscular Volume 89 fL (80-97); Mean Platelet Volume 6.9 fL (7.4-10.4); Platelet Count 248 10^3/uL (150-450); Red Blood Count 3.67 10^6 /uL (3.70-4.87); Red Cell Distribution Width 13 % (10-15); White Blood Count 9.3 10^3/uL (3.5-10.8)
[2022-07-18] MEDS ORDERED: Heparin 5000 UNITS/ML 1 mL VIAL SUBCUT SCH (06:00)
[2022-07-18 06:37] LABS: Calcium 8.1 mg/dL (8.6-10.3); Magnesium 2.2 mg/dL (1.9-2.7); Phosphorus 3.3 mg/dL (2.5-5.0); eGFR CKD-EPI 106.3 (>60)
[2022-07-18 06:46] LABS: Potassium 2.7 mmol/L (3.5-5.0)
[2022-07-18] MEDS ORDERED: Multivitamins/Minerals TAB PO SCH (09:00)
[2022-07-18] MEDS ORDERED: Potassium Chloride LIQUID 20 MEQ/15 ML LIQUID PO ONE (09:18)
[2022-07-18 09:35] LABS: Calcium 8.3 mg/dL (8.6-10.3); Magnesium 2.7 mg/dL (1.9-2.7); eGFR CKD-EPI 99.1 (>60)
[2022-07-18 10:19] VITALS: BP 120/92
== END 2022-07-18 09:38 | disposition left against medical advice (07) | DRG 425 ==
LOC: ED 17:05 → EDHOLD 23:31 → ICU 07-18 05:11
PROVIDERS: ADMIT Internal Medicine; ATTEND Internal Medicine